=== PATIENT | female | born 1955 | race Caucasian/White ===

== ENCOUNTER 2016-09-20 19:01 | Emergency (ER) | payer OTHER ==
[~2016-09-20] VITALS: Ht 165.1 cm; Wt 90.7 kg
[~2016-09-20 19:01] MED LIST: ALDACTONE25 M1 PO; ALDACTONE25 MG PO; AMOXICILLIN500 MG PO; AMOXIL500 MG PO; ANAPROX DS550 MG PO; ASPIR-TRIN325 MG PO; ATIVAN0.5 MG PO; ATIVAN1 MG PO; ATIVAN2 M1 PO; ATORVASTATIN CA40 M1 PO; AUGMENTIN 875 M1 TAB PO; AUGMENTIN 875-875 MG PO; AUGMENTIN 875875 MG PO; BACTRIM DS 8001 TA1 PO; BENTYL10 MG PO; CARVEDILOL6.25 MG PO; CATAFLAM50 MG PO; CHERATUSSIN AC240 ML PO; CIPRO500 MG PO; CIPROFLOXACIN500 MG PO; CLARITIN10 MG PO; COLACE100 MG PO; COREG6.25 MG PO; DARVOCET N 1001 TAB PO; DAYPRO600 M1 PO; DEBROX15 ML OT; DIABETA,MICRO1.25 MG PO; DIFLUCAN150 MG PO; DIGITEK0.125 MG PO; DIGOXIN0.125 MG PO; FEROSUL325 M1 PO; FERROUS SULFAT325 MG PO; FEXOFENADINE60 MG PO; FLAGYL500 MG PO; FLEXERIL10 MG PO; FLEXERIL5 MG PO; FLONASE 0.05% 121 EA NAS; FLONASE ALLERG9.9 ML NAS; FLONASE ALLERG9.9 ML NS; FLONASE0.05 MG/AC NS; GLYBURIDE1.25 MG PO; HYDROCODONE BIT1 T11 PO; HYDROXYZINE10 MG PO; IBU-6600 MG PO; KLONOPIN1 MG PO; KLONOPIN2 M1 PO; LASIX20 MG PO; LEVAQUIN750 M1 PO; LISINOPRIL5 MG PO; LOMOTIL 0.025 M1 TA1 PO; MACROBID100 M1 PO; MEDROL DOSEPAK4 MG PO; METFORMIN HCL500 MG PO; METFORMIN1000 MG PO; METFORMIN500 MG PO; MOTRIN800 MG PO; Motrin,Rufen800 MG PO; NASONEX0.05 MG/AC NAS; NORCO 10-325 T1 EACH PO; NORCO 325 MG-51 TAB PO; OMEPRAZOLE20 MG PO; OXYBUTYNIN ER15 MG PO; OXYBUTYNIN5 MG PO; PHENERGAN25 M1 PO; PREDNISONE10 MG PO; PREDNISONE20 MG PO; PRILOSEC20 M2 PO; PROZAC20 MG PO; PYRIDIUM200 MG PO; Proloprim100 MG PO; REMERON SOLTAB30 MG PO; REMERON30 MG PO; ROBAXIN750 MG PO; ROBITUSSIN AC 110 ML PO; SALINE MIST 4545 ML NAS; TESSALON PERLE200 MG PO; TOBRADEX 0.1%-0.5 ML OPH; TOVIAZ8 MG PO; TRAMADOL HCL50 MG PO; VESICARE5 MG PO; VIBRAMYCIN100 MG PO; VICODIN 5/500 505 MG PO; VISTARIL50 MG PO; ZESTRIL5 MG PO; ZITHROMAX Z PA250 MG PO; ZOFRAN ODT4 MG SL; ZOFRAN4 MG PO; Zofran4 MG PO
[2016-09-20 19:18] VITALS: BP 155/100
[2016-09-20 19:52] LABS: BASO # 0.1 10*3/uL (0.0-0.1); BASO % 0.4 % (0.0-1.0); EOS # 0.1 10*3/uL (0.0-0.4); HEMATOCRIT 38.7 % (37.0-47.0); HEMOGLOBIN 11.4 g/dl (12.0-16.0); IG # 0.2 10*3/uL (0.0-0.1); LYMPH # 3.6 10*3/uL (1.3-4.4); LYMPH % 25.7 % (27.0-41.0); MEAN CELL VOLUME 77.4 fl (81.0-99.0); MEAN CORPUSCULAR HGB 22.8 pg (27.0-31.0); MEAN CORPUSCULAR HGB CONC 29.5 g/dl (33.0-37.0); MEAN PLATELET VOLUME 8.6 fl (9.6-12.3); MONO # 1.1 10*3/uL (0.1-1.0); MONO % 8.1 % (3.0-9.0); NEUT # 8.9 10*3/uL (2.3-7.9); NEUT % 63.4 % (47.0-73.0); PLATELET COUNT AUTOMATED 372 10*3/uL (130-400); RED CELL DISTRI WIDTH 16.8 % (0-14.5)
[2016-09-20 19:56] LABS: BILIRUBIN NEGATIVE (NEGATIVE); BLOOD TRACE-INTACT (NEGATIVE); CLARITY CLEAR (CLEAR); COLOR YELLOW (YELLOW); GLUCOSE NEGATIVE (NEGATIVE); KETONE TRACE (NEGATIVE); LEUKO ESTERASE NEGATIVE (NEGATIVE); NITRITE NEGATIVE (NEGATIVE); PH 6.5 (5.0-9.0); PROTEIN NEGATIVE (NEGATIVE); UROBILINOGEN 0.2 E.U./dl (0.2-1.0)
[2016-09-20 20:05] LABS: BACTERIA TRACE; EPITHELIAL CELLS 0-2; URINE REFLEX COMMENT YES (NO)
[2016-09-20 20:10] LABS: BUN 16 mg/dl (7-24); CARBON DIOXIDE 30 mmol/L (21-32); CHLORIDE 102 mmol/L (98-107); EST GLOM FILT AFRICAN AMERICAN > 60 ml/min; GLUCOSE 146 mg/dL (65-99); POTASSIUM 3.9 mmol/L (3.5-5.1); SODIUM 141 mmol/L (136-145)
[2016-09-20 20:11] LABS: C-REACTIVE PROTEIN < 0.29 MG/DL (0-0.3)
[2016-09-20 21:49] LABS: LA>2 REFLEX 2 HR DRAW NOW
[2016-09-20] MEDS ORDERED: NORCO 5-325 TA1 EACH PO (21:56)
[2016-09-20] MEDS ORDERED: OMNICEF300 MG PO (21:56)
[2016-09-20] MEDS ORDERED: ZOFRAN ODT4 MG SL (22:01)
[2016-09-20 22:18] LABS: LA>2 RFLX FOLLOW UP AT 2 HRS 3.2 mmol/L (0.4-2.0)
[2016-09-20] MEDS ORDERED: FLUCONAZOLE100 MG PO (22:23)
[2016-09-21] LABS: LA>2 REFLEX 4 HR DRAW NOW
== END 2016-09-20 22:08 | disposition home or self-care (01) ==
LOC: ED 19:01
PROVIDERS: Emergency Medicine Emergency Medical Services
DX: N20.0 Calculus of kidney (principal); R82.71 Bacteriuria; R11.10 Vomiting, unspecified; Z79.899 Other long term (current) drug therapy

== ENCOUNTER 2016-10-07 13:28 | Emergency (ER) | payer OTHER ==
[~2016-10-07] VITALS: Ht 165.1 cm; Wt 81.6 kg
[~2016-10-07 13:28] MED LIST changes: +FLUCONAZOLE100 MG PO; +NORCO 5-325 TA1 EACH PO; +OMNICEF300 MG PO
[2016-10-07 13:38] VITALS: BP 124/71
[2016-10-07] MEDS ORDERED: NAPROSYN500 MG PO (16:08)
== END 2016-10-07 16:18 | disposition home or self-care (01) ==
LOC: ED 13:28
DX: S22.31XA Fracture of one rib, right side, initial encounter for closed fracture (principal); K58.9 Irritable bowel syndrome, unspecified; Z96.643 Presence of artificial hip joint, bilateral; Z98.51 Tubal ligation status; Z90.710 Acquired absence of both cervix and uterus; Z98.890 Other specified postprocedural states; Z79.899 Other long term (current) drug therapy; W18.09XA Striking against other object with subsequent fall, initial encounter; Y93.89 Activity, other specified; Y92.89 Other specified places as the place of occurrence of the external cause; Y99.9 Unspecified external cause status

== ENCOUNTER 2016-11-23 11:07 | Emergency (ER) | payer OTHER ==
[~2016-11-23] VITALS: Ht 165.1 cm; Wt 81.6 kg
[~2016-11-23 11:07] MED LIST changes: +NAPROSYN500 MG PO
[2016-11-23 11:28] VITALS: BP 160/89
[2016-11-23 11:45] LABS: BILIRUBIN NEGATIVE (NEGATIVE); BLOOD TRACE-LYSED (NEGATIVE); CLARITY SL CLOUDY (CLEAR); COLOR YELLOW (YELLOW); GLUCOSE NEGATIVE (NEGATIVE); KETONE NEGATIVE (NEGATIVE); LEUKO ESTERASE TRACE (NEGATIVE); NITRITE NEGATIVE (NEGATIVE); PH 5.5 (5.0-9.0); PROTEIN TRACE (NEGATIVE); SPECIFIC GRAVITY 1.025 (1.005-1.030); UROBILINOGEN 0.2 E.U./dl (0.2-1.0)
[2016-11-23 12:01] LABS: BACTERIA 1+; MUCOUS 1+; URINE REFLEX COMMENT YES (NO)
[2016-11-23] MEDS ORDERED: MACROBID100 M1 PO (12:14)
[2016-11-23] MEDS ORDERED: DIFLUCAN150 MG PO (12:25)
== END 2016-11-23 13:56 | disposition home or self-care (01) ==
LOC: ED 11:07
PROVIDERS: Registered Nurse
DX: N30.01 Acute cystitis with hematuria (principal); R19.7 Diarrhea, unspecified; Z79.899 Other long term (current) drug therapy

== ENCOUNTER 2016-12-04 20:23 | Emergency (ER) | payer OTHER ==
[~2016-12-04] VITALS: Ht 165.1 cm; Wt 81.6 kg
[2016-12-04 20:34] VITALS: BP 141/94
[2016-12-04 21:09] LABS: BILIRUBIN NEGATIVE (NEGATIVE); BLOOD NEGATIVE (NEGATIVE); CLARITY SL CLOUDY (CLEAR); COLOR YELLOW (YELLOW); GLUCOSE NEGATIVE (NEGATIVE); KETONE TRACE (NEGATIVE); LEUKO ESTERASE NEGATIVE (NEGATIVE); NITRITE NEGATIVE (NEGATIVE); PROTEIN TRACE (NEGATIVE); SPECIFIC GRAVITY 1.025 (1.005-1.030); UROBILINOGEN 0.2 E.U./dl (0.2-1.0)
[2016-12-04 21:18] LABS: BACTERIA 1+; CALCIUM OXALATE CRYSTALS 1+; MUCOUS 1+; URINE REFLEX COMMENT NO (NO)
[2016-12-04] MEDS ORDERED: CIPRO500 MG PO (21:58)
[2016-12-04] MEDS ORDERED: PYRIDIUM200 M1 PO (22:00)
[2016-12-04] MEDS ORDERED: Zofran4 MG PO (23:07)
== END 2016-12-04 23:24 | disposition home or self-care (01) ==
LOC: ED 20:23
PROVIDERS: Emergency Medicine
DX: N39.0 Urinary tract infection, site not specified (principal); Z79.899 Other long term (current) drug therapy; Z87.442 Personal history of urinary calculi

== ENCOUNTER 2017-04-24 17:58 | Inpatient (IN) | payer OTHER ==
[~2017-04-24] VITALS: Ht 165.1 cm; Wt 107.1 kg
[~2017-04-24 17:58] MED LIST changes: +PYRIDIUM200 M1 PO
[2017-04-24 18:01] VITALS: BP 156/78
[2017-04-24 18:40] LABS: BASO # 0.1 10*3/uL (0.0-0.1); BASO % 0.4 % (0.0-1.0); EOS % 0.1 % (1.0-4.0); HEMATOCRIT 36.8 % (37.0-47.0); HEMOGLOBIN 10.9 g/dl (12.0-16.0); LYMPH # 1.6 10*3/uL (1.3-4.4); LYMPH % 11.9 % (27.0-41.0); MEAN CELL VOLUME 73.6 fl (81.0-99.0); MEAN CORPUSCULAR HGB 21.8 pg (27.0-31.0); MEAN CORPUSCULAR HGB CONC 29.6 g/dl (33.0-37.0); MONO # 0.8 10*3/uL (0.1-1.0); NEUT # 10.9 10*3/uL (2.3-7.9); NEUT % 80.8 % (47.0-73.0); PLATELET COUNT AUTOMATED 494 10*3/uL (130-400); RED CELL DISTRI WIDTH 16.1 % (0-14.5); WHITE BLOOD COUNT 13.5 10*3/uL (4.8-10.8)
[2017-04-24 18:51] LABS: ACT PARTIAL THROMBO TIME 22.7 SECONDS (20.8-31.5)
[2017-04-24 18:57] LABS: ALBUMIN 3.5 gm/dl (3.1-4.5); ALKALINE PHOSPHATASE 53 U/L (45-117); BUN 9 mg/dl (7-24); CHLORIDE 102 mmol/L (98-107); CREATININE 0.79 mg/dL (0.55-1.02); POTASSIUM 3.9 mmol/L (3.5-5.1); SGOT/AST 14 IU/L (3-35); SGPT/ALT 18 U/L (12-78); SODIUM 141 mmol/L (136-145); TOTAL PROTEIN 7.6 gm/dL (6.4-8.2)
[2017-04-24 18:58] LABS: TROPONIN I < 0.015 ng/ml (<0.045)
[2017-04-24 19:11] VITALS: BP 145/94
[2017-04-24 19:30] VITALS: BP 131/73
--- NOTE | 2017-04-24 19:30 | NUR ---
A 62, admitted to , under the services of SABAS Garcia DO with a diagnosis of GASTROENTERITIS, SEVERE SEPSIS. Chief complaint is NAUSEA/VOMITING. Patient arrived via bed from ER. Monitor applied. Initial assessment completed. Vital signs taken and recorded. SABAS GARCIA DO notified of admission to the unit. Orders received. See assessment for past medical history, medications and allergies. Patient and/or family oriented to unit. visitation policy reviewed. Clothing/patient valuable form completed. ADALBERTO BOOTH
[2017-04-24] MEDS ORDERED: AMBIEN10 M1 PO (19:51)
[2017-04-24 20:00] VITALS: BP 131/73
--- NOTE | 2017-04-24 20:00 | NUR ---
DR. MATHEW NOTIFIED OF PATIENT ADMISSION TO THE FLOOR AND THAT MED REQ WAS VERIFIED WITH PATIENT AND UP TO DATE.
--- NOTE | 2017-04-24 20:49 | NUR ---
PATIENT MEDICATED WITH PHENERGAN 25MG FOR NAUSEA AND VOMITING. WILL MONITOR FOR EFFECTIVENESS. CALL LIGHT IN REACH.
--- NOTE | 2017-04-24 20:56 | NUR ---
MEDICATED WITH DILAUDID FOR COMPLAINTS OF ABDOMINAL PAIN. WILL MONITOR FOR EFFECTIVENESS. CALL LIGHT IN REACH.
--- NOTE | 2017-04-24 21:15 | NUR ---
DR. DANIELS NOTIFIED OF CRITICAL LACTIC ACID OF 3.0.
--- NOTE | 2017-04-24 21:30 | NUR ---
DILAUDID AND PHENERGAN EFFECTIVE AT THIS TIME. PATIENT HAVING NO PAIN, NAUSEA OR VOMITING. STATED SHE IS FEELING GOOD NOW. WILL CONTINUE TO MONITOR. CALL LIGHT IN REACH.
--- NOTE | 2017-04-24 23:41 | NUR ---
DR. DANIELS NOTIFIED OF CRITICAL LACTIC ACID OF 3.2.
[2017-04-25] VITALS: BP 134/86
--- NOTE | 2017-04-25 00:27 | NUR ---
PATIENT MEDICATED WITH DILAUDID FOR COMPLAINTS OF ABDOMINAL PAIN. WILL MONITOR FOR EFFECTIVENESS. CALL LIGHT IN REACH.
--- NOTE | 2017-04-25 00:38 | NUR ---
MEDICATED WITH DILAUDID SLOW IV PUSH FOR C/O ABDOMINAL PAIN.
--- NOTE | 2017-04-25 00:54 | NUR ---
DILAUDID EFFECTIVE AT THIS TIME. PATIENT RESTING IN BED WITH EYES CLOSED. AROUSES TO VERBAL STIMULI. NO SIGNS OR SYMPTOMS OF DISTRESS NOTED. WILL CONTINUE TO MONITOR. CALL LIGHT IN REACH.
[2017-04-25 00:55] LABS: BILIRUBIN NEGATIVE (NEGATIVE); BLOOD 1+ (NEGATIVE); CLARITY CLEAR (CLEAR); COLOR YELLOW (YELLOW); GLUCOSE NEGATIVE (NEGATIVE); KETONE NEGATIVE (NEGATIVE); LEUKO ESTERASE NEGATIVE (NEGATIVE); NITRITE NEGATIVE (NEGATIVE); PH 5.5 (5.0-9.0); SPECIFIC GRAVITY <= 1.005 (1.005-1.030); UROBILINOGEN 0.2 E.U./dl (0.2-1.0)
[2017-04-25 01:01] LABS: BACTERIA TRACE
--- NOTE | 2017-04-25 04:28 | NUR ---
PATIENT MEDICATED WITH PHENERGAN 12.5MG FOR COMPLAINTS OF NAUSEA. WILL MONITOR FOR EFFECTIVENESS. CALL LIGHT IN REACH.
--- NOTE | 2017-04-25 04:35 | NUR ---
MEDICATED WITH DILAUDID FOR COMPLAINTS OF HEADACHE AND ABDOMINAL PAIN. WILL MONITOR FOR EFFECTIVENESS. CALL LIGHT IN REACH.
--- NOTE | 2017-04-25 05:08 | NUR ---
PHENERGAN AND DILAUDID EFFECTIVE. CALL LIGHT IN REACH.
[2017-04-25 06:29] LABS: BASO % 0.3 % (0.0-1.0); EOS # 0.1 10*3/uL (0.0-0.4); EOS % 0.7 % (1.0-4.0); HEMOGLOBIN 9.4 g/dl (12.0-16.0); LYMPH # 3.7 10*3/uL (1.3-4.4); MEAN CELL VOLUME 76.2 fl (81.0-99.0); MEAN CORPUSCULAR HGB 21.7 pg (27.0-31.0); MEAN CORPUSCULAR HGB CONC 28.5 g/dl (33.0-37.0); MEAN PLATELET VOLUME 9.1 fl (9.6-12.3); MONO # 1.2 10*3/uL (0.1-1.0); MONO % 9.2 % (3.0-9.0); NEUT # 7.6 10*3/uL (2.3-7.9); NEUT % 60.1 % (47.0-73.0); PLATELET COUNT AUTOMATED 448 10*3/uL (130-400); RED BLOOD COUNT 4.33 10*6/uL (4.10-5.10); RED CELL DISTRI WIDTH 16.3 % (0-14.5); WHITE BLOOD COUNT 12.7 10*3/uL (4.8-10.8)
[2017-04-25 07:00] LABS: ACT PARTIAL THROMBO TIME 24.5 SECONDS (20.8-31.5)
[2017-04-25 07:14] LABS: ALBUMIN 3.1 gm/dl (3.1-4.5); BUN 8 mg/dl (7-24); CHLORIDE 105 mmol/L (98-107); POTASSIUM 3.7 mmol/L (3.5-5.1); SGOT/AST 17 IU/L (3-35); SGPT/ALT 15 U/L (12-78); SODIUM 142 mmol/L (136-145)
[2017-04-25 07:22] LABS: ALKALINE PHOSPHATASE 42 U/L (45-117); CHOLESTEROL 244 mg/dL (<200); CREATININE 0.76 mg/dL (0.55-1.02); FREE T4 1.12 ng/dl (0.76-1.46); HDL CHOLESTEROL 79 mg/dl (40-60); LDL CHOLESTEROL 121 mg/dL (9-159); PHOSPHOROUS 3.1 mg/dL (2.5-4.9); TOTAL PROTEIN 6.5 gm/dL (6.4-8.2); TRIGLYCERIDES 222 mg/dl (<150); VLDL CHOLESTEROL 44 mg/dL (6-40)
[2017-04-25 07:37] LABS: VITAMIN D, 25-HYDROXY 22.8 ng/mL (30-100)
[2017-04-25 08:00] VITALS: BP 120/70
--- NOTE | 2017-04-25 09:32 | NUR ---
TRIED TO CONTACT MANISHA FERNANDEZ TO RECONCILE HOME MEDICATIONS BUT THE PHARMACY WAS NOT OPEN.
--- NOTE | 2017-04-25 10:10 | NUR ---
PHARMACIST TO FAX PATIENTS MED LIST BECAUSE IT WAS VERY LONG. WILL VERIFY AND FOLLOW UP NEEDED FOR COMPLETION.
[2017-04-25 12:00] VITALS: BP 143/92
[2017-04-25] MEDS ORDERED: OMEPRAZOLE D/R20 MG PO (12:25)
[2017-04-25] MEDS ORDERED: BUTALB-ASPIRIN1 EACH PO (12:36)
[2017-04-25] MEDS ORDERED: GLIMEPIRIDE4 M1 PO (12:39)
[2017-04-25] MEDS ORDERED: TERAZOSIN HCL2 M1 PO (12:40)
--- NOTE | 2017-04-25 13:15 | NUR ---
DR. WALSH NOTIFIED ABOUT COMPLETED MED REC.
--- NOTE | 2017-04-25 15:37 | NUR ---
SPOKE TO SARKIS THE PHARMACIST MEDICATIONS ARE CORRECT AND UP TO DATE
--- NOTE | 2017-04-25 15:39 | NUR ---
DR. WALSH NOTIFIED OF PATIENTS INCREASE IN PVC'S AND HEART RATE RANGING FROM 124 UP TO 133. BP 134-64 T 98.8 SPO2 95 % ROOM AIR. PATIENT IS SITTING UP IN CHAIR. PATIENT IS CHRONICALLY ANXIOUS, ALERT AND ORIENTED. NO C/O CHEST PAIN.
[2017-04-25 16:00] VITALS: BP 136/90
--- NOTE | 2017-04-25 17:15 | NUR ---
FIORACET NOT EFFECTIVE. PATIENT STILL C/O HEADACHE. STATES THE ONLY THING THAT HELPS IS DILAUDID.
--- NOTE | 2017-04-25 19:29 | NUR ---
PATIENT'S SISTER TO NURSES STATION STATING THAT PATIENT HAS HAD A HEADACHE ALL DAY AND IT HAS NOT BEEN RESOLVED. WILL ASSESS PATIENT AND LET KNOW
--- NOTE | 2017-04-25 19:47 | NUR ---
DR BECERRIL AWARE OF PATIENT C/O HEADACHE AND THAT DILAUDID IS THE ONLY THING THAT WORKS FOR HER. ORDER FOR 0.5 DILAUDID Q4H PRN FOR PAIN.
[2017-04-25 20:00] VITALS: BP 135/89
--- NOTE | 2017-04-25 20:13 | NUR ---
PATIENT MEDICATED WITH PRN DILAUDID FOR C/O HEADACHE RATED 10/10 ON A 0/10 PAIN SCALE.
--- NOTE | 2017-04-25 21:13 | NUR ---
PATIENT STATES MEDICATION IN MILDLY EFFECTIVE
--- NOTE | 2017-04-25 22:31 | NUR ---
PATIENT MEDICATED WITH PRN PHENERGAN FOR C/O NAUSEA
--- NOTE | 2017-04-25 23:54 | NUR ---
PATIENT RESTING IN BED WITH EYES CLOSED. NO S/S OF DISTRESS. MEDICATION SEEMS EFFECTIVE
[2017-04-26] VITALS: BP 104/83
--- NOTE | 2017-04-26 02:32 | NUR ---
DR BECERRIL AWARE OF PATIENT'S FEET BEGINNING TO SWELL, HISTORY OF CHF, AND FLUIDS RUNNING. STATES TO STOP FLUIDS
--- NOTE | 2017-04-26 03:06 | NUR ---
PATIENT MEDICATED WITH DILAUDID FOR C/O ANXIOUSNESS
--- NOTE | 2017-04-26 04:13 | NUR ---
MEDICATION NOT EFFECTIVE PER PATIENT
--- NOTE | 2017-04-26 04:23 | NUR ---
24 HR chart check completed.
[2017-04-26 06:47] LABS: BASO % 0.3 % (0.0-1.0); EOS # 0.2 10*3/uL (0.0-0.4); EOS % 1.5 % (1.0-4.0); HEMATOCRIT 30.6 % (37.0-47.0); HEMOGLOBIN 8.9 g/dl (12.0-16.0); LYMPH # 2.6 10*3/uL (1.3-4.4); LYMPH % 26.1 % (27.0-41.0); MEAN CELL VOLUME 76.5 fl (81.0-99.0); MEAN CORPUSCULAR HGB 22.3 pg (27.0-31.0); MEAN CORPUSCULAR HGB CONC 29.1 g/dl (33.0-37.0); MEAN PLATELET VOLUME 9.2 fl (9.6-12.3); MONO % 9.5 % (3.0-9.0); NEUT # 6.2 10*3/uL (2.3-7.9); NEUT % 61.6 % (47.0-73.0); PLATELET COUNT AUTOMATED 383 10*3/uL (130-400); RED CELL DISTRI WIDTH 16.2 % (0-14.5); WHITE BLOOD COUNT 10.1 10*3/uL (4.8-10.8)
[2017-04-26 07:24] LABS: ALBUMIN 2.9 gm/dl (3.1-4.5); BUN 5 mg/dl (7-24); CHLORIDE 102 mmol/L (98-107); CREATININE 0.71 mg/dL (0.55-1.02); POTASSIUM 3.7 mmol/L (3.5-5.1); SGOT/AST 42 IU/L (3-35); SGPT/ALT 27 U/L (12-78); SODIUM 140 mmol/L (136-145); TOTAL PROTEIN 6.2 gm/dL (6.4-8.2)
[2017-04-26 07:33] LABS: ALKALINE PHOSPHATASE 44 U/L (45-117)
--- NOTE | 2017-04-26 07:45 | NUR ---
MEDICATED FOR ANXIETY WITH VISTARIL.
[2017-04-26 08:00] VITALS: BP 127/77
--- NOTE | 2017-04-26 08:40 | NUR ---
STATES TAHT EARLIER MED HELPED HER ANXIETY A LITTLE.
--- NOTE | 2017-04-26 09:00 | NUR ---
case management visits with patient, patient was not feeling well at this time and asked case mangaement to come back later. will see at a later time
--- NOTE | 2017-04-26 10:29 | NUR ---
MEDICATED FOR C/O HEADACHE.
[2017-04-26] MEDS ORDERED: PHENERGAN25 M3 PO (12:02)
[2017-04-26] MEDS ORDERED: GLIMEPIRIDE4 M1 PO (12:07)
--- NOTE | 2017-04-26 13:02 | NUR ---
DISCHARGED HOME AFTER INSTRUCTIONS GIVEN TO PATIENT.
== END 2017-04-26 13:02 | disposition home or self-care (01) | DRG 872 ==
LOC: ED 17:58 → 4E 19:01 → EDHOLD 19:01 → 4E 19:02
PROVIDERS: Hospitalist; Internal Medicine; Student in an Organized Health Care Education/Training Program; ADMIT Internal Medicine
DX: A41.9 Sepsis, unspecified organism (principal); E87.2 Acidosis; E44.0 Moderate protein-calorie malnutrition; E11.65 Type 2 diabetes mellitus with hyperglycemia; E66.01 Morbid (severe) obesity due to excess calories; D72.810 Lymphocytopenia; R65.20 Severe sepsis without septic shock; K52.9 Noninfective gastroenteritis and colitis, unspecified; D47.3 Essential (hemorrhagic) thrombocythemia; D50.9 Iron deficiency anemia, unspecified; I10 Essential (primary) hypertension; E78.2 Mixed hyperlipidemia; F41.8 Other specified anxiety disorders; F32.9 Major depressive disorder, single episode, unspecified; E55.9 Vitamin D deficiency, unspecified; R51 Headache; Z79.899 Other long term (current) drug therapy; Z82.49 Family history of ischemic heart disease and other diseases of the circulatory system; Z80.41 Family history of malignant neoplasm of ovary; Z80.42 Family history of malignant neoplasm of prostate; Z90.710 Acquired absence of both cervix and uterus; Z68.37 Body mass index [BMI] 37.0-37.9, adult

== ENCOUNTER 2017-06-26 17:15 | Emergency (ER) | payer OTHER ==
[~2017-06-26] VITALS: Wt 81.6 kg
[~2017-06-26 17:15] MED LIST changes: +AMBIEN10 M1 PO; +BUTALB-ASPIRIN1 EACH PO; +GLIMEPIRIDE4 M1 PO; +OMEPRAZOLE D/R20 MG PO; +PHENERGAN25 M3 PO; +TERAZOSIN HCL2 M1 PO
[2017-06-26 17:17] VITALS: BP 117/74
[2017-06-26 17:51] LABS: BILIRUBIN NEGATIVE (NEGATIVE); BLOOD NEGATIVE (NEGATIVE); CLARITY CLEAR (CLEAR); COLOR YELLOW (YELLOW); GLUCOSE NEGATIVE (NEGATIVE); KETONE NEGATIVE (NEGATIVE); LEUKO ESTERASE NEGATIVE (NEGATIVE); NITRITE NEGATIVE (NEGATIVE); PH 5.5 (5.0-9.0); UROBILINOGEN 0.2 E.U./dl (0.2-1.0)
[2017-06-26 17:53] LABS: BASO % 0.2 % (0.0-1.0); EOS # 0.1 10*3/uL (0.0-0.4); EOS % 1.1 % (1.0-4.0); HEMATOCRIT 37.6 % (37.0-47.0); HEMOGLOBIN 10.8 g/dl (12.0-16.0); LYMPH # 2.4 10*3/uL (1.3-4.4); LYMPH % 18.9 % (27.0-41.0); MEAN CORPUSCULAR HGB 21.3 pg (27.0-31.0); MEAN CORPUSCULAR HGB CONC 28.7 g/dl (33.0-37.0); MEAN PLATELET VOLUME 8.9 fl (9.6-12.3); MONO % 7.8 % (3.0-9.0); NEUT # 9.2 10*3/uL (2.3-7.9); NEUT % 71.2 % (47.0-73.0); PLATELET COUNT AUTOMATED 390 10*3/uL (130-400); RED BLOOD COUNT 5.08 10*6/uL (4.10-5.10); RED CELL DISTRI WIDTH 17.5 % (0-14.5); WHITE BLOOD COUNT 12.9 10*3/uL (4.8-10.8)
[2017-06-26 17:57] LABS: BACTERIA TRACE
[2017-06-26 18:09] LABS: ALBUMIN 3.5 gm/dl (3.1-4.5); ALKALINE PHOSPHATASE 52 U/L (45-117); BUN 19 mg/dl (7-24); CHLORIDE 99 mmol/L (98-107); CREATININE 0.82 mg/dL (0.55-1.02); POTASSIUM 3.8 mmol/L (3.5-5.1); SGOT/AST 14 IU/L (3-35); SGPT/ALT 15 U/L (12-78); SODIUM 140 mmol/L (136-145); TOTAL PROTEIN 7.2 gm/dL (6.4-8.2)
[2017-06-26] MEDS ORDERED: PYRIDIUM200 M1 PO (18:26)
[2017-06-26] MEDS ORDERED: METFORMIN XR500 MG PO (18:26)
[2017-06-26] MEDS ORDERED: DIFLUCAN150 MG PO (18:26)
== END 2017-06-26 18:30 | disposition home or self-care (01) ==
LOC: ED 17:15
PROVIDERS: Emergency Medicine
DX: R30.0 Dysuria (principal); R35.0 Frequency of micturition; E11.9 Type 2 diabetes mellitus without complications; I10 Essential (primary) hypertension; E78.5 Hyperlipidemia, unspecified; Z79.899 Other long term (current) drug therapy

== ENCOUNTER → 2017-07-27 | Outpatient (CLI) | payer OTHER ==
[~2017-07-27] MED LIST changes: +METFORMIN XR500 MG PO
[2017-07-27 12:22] LABS: BUN 10 mg/dl (7-24); CHLORIDE 105 mmol/L (98-107); CHOLESTEROL 180 mg/dL (<200); CPK 147 U/L (26-192); CREATININE 0.76 mg/dL (0.55-1.02); HDL CHOLESTEROL 67 mg/dl (40-60); LDL CHOLESTEROL 63 mg/dL (9-159); POTASSIUM 4.1 mmol/L (3.5-5.1); SODIUM 141 mmol/L (136-145); TRIGLYCERIDES 250 mg/dl (<150); VLDL CHOLESTEROL 50 mg/dL (6-40)
[2017-07-27 12:35] LABS: DIGOXIN 0.42 ng/ml (0.8-2.0)
[2017-07-28 12:05] LABS: CREATININE,URINE 106.9 mg/dL (Not Estab.); MICRO ALBUMIN/CRE RATIO 18.1 (0.0-30.0)
== END | disposition home or self-care (01) ==
LOC: LAB 11:22
PROVIDERS: Family Medicine
DX: E11.9 Type 2 diabetes mellitus without complications (principal); I50.9 Heart failure, unspecified; E78.5 Hyperlipidemia, unspecified

== ENCOUNTER → 2017-08-11 | Outpatient (CLI) | payer OTHER | END | disposition home or self-care (01) | LOC: CARD 02:25 | DX: I08.1 Rheumatic disorders of both mitral and tricuspid valves (principal) ==

== ENCOUNTER 2017-08-22 13:45 | Emergency (ER) | payer OTHER ==
[~2017-08-22] VITALS: Ht 167.6 cm; Wt 79.4 kg
[2017-08-22 13:45] VITALS: BP 169/94
[2017-08-22 15:01] LABS: BASO % 0.3 % (0.0-1.0); EOS % 0.1 % (1.0-4.0); HEMATOCRIT 38.3 % (37.0-47.0); HEMOGLOBIN 11.3 g/dl (12.0-16.0); LYMPH # 1.8 10*3/uL (1.3-4.4); LYMPH % 12.8 % (27.0-41.0); MEAN CELL VOLUME 74.5 fl (81.0-99.0); MEAN CORPUSCULAR HGB CONC 29.5 g/dl (33.0-37.0); MEAN PLATELET VOLUME 8.7 fl (9.6-12.3); MONO % 6.7 % (3.0-9.0); NEUT # 11.3 10*3/uL (2.3-7.9); NEUT % 79.3 % (47.0-73.0); PLATELET COUNT AUTOMATED 435 10*3/uL (130-400); RED BLOOD COUNT 5.14 10*6/uL (4.10-5.10); RED CELL DISTRI WIDTH 18.1 % (0-14.5); WHITE BLOOD COUNT 14.2 10*3/uL (4.8-10.8)
[2017-08-22 15:04] LABS: BILIRUBIN NEGATIVE (NEGATIVE); BLOOD NEGATIVE (NEGATIVE); CLARITY SL CLOUDY (CLEAR); COLOR YELLOW (YELLOW); GLUCOSE 3+ (NEGATIVE); KETONE NEGATIVE (NEGATIVE); LEUKO ESTERASE NEGATIVE (NEGATIVE); NITRITE NEGATIVE (NEGATIVE); PH 5.5 (5.0-9.0); SPECIFIC GRAVITY 1.015 (1.005-1.030); UROBILINOGEN 0.2 E.U./dl (0.2-1.0)
[2017-08-22 15:10] LABS: ACT PARTIAL THROMBO TIME 22.3 SECONDS (20.8-31.5); INTERNATIONAL NORM RATIO 0.9 (2.0-3.5)
[2017-08-22 15:16] LABS: BACTERIA TRACE; RBC 0-2 rbc/hpf (0-2); WBC 0-2 wbc/hpf (0-5)
[2017-08-22 15:17] LABS: ALBUMIN 3.5 gm/dl (3.1-4.5); ALKALINE PHOSPHATASE 60 U/L (45-117); BUN 16 mg/dl (7-24); CHLORIDE 97 mmol/L (98-107); CREATININE 0.85 mg/dL (0.55-1.02); LIPASE 219 U/L (73-393); POTASSIUM 3.9 mmol/L (3.5-5.1); SGOT/AST 11 IU/L (3-35); SGPT/ALT 15 U/L (12-78); SODIUM 138 mmol/L (136-145); TOTAL PROTEIN 7.4 gm/dL (6.4-8.2)
[2017-08-22] MEDS ORDERED: ZOFRAN ODT4 MG SL (16:55)
== END 2017-08-22 17:01 | disposition home or self-care (01) ==
LOC: ED 13:45
PROVIDERS: Emergency Medicine
DX: R11.2 Nausea with vomiting, unspecified (principal); R10.84 Generalized abdominal pain; E11.9 Type 2 diabetes mellitus without complications; E78.5 Hyperlipidemia, unspecified; E66.9 Obesity, unspecified; E78.00 Pure hypercholesterolemia, unspecified; I11.0 Hypertensive heart disease with heart failure; I50.9 Heart failure, unspecified; K58.9 Irritable bowel syndrome, unspecified; Z96.643 Presence of artificial hip joint, bilateral; Z98.51 Tubal ligation status; Z90.710 Acquired absence of both cervix and uterus; Z98.890 Other specified postprocedural states; Z79.899 Other long term (current) drug therapy

== ENCOUNTER 2017-12-04 16:26 | Emergency (ER) | payer OTHER ==
[~2017-12-04] VITALS: Ht 165.1 cm; Wt 81.6 kg
[2017-12-04 16:30] VITALS: BP 147/90
[2017-12-04] MEDS ORDERED: AMOXICILLIN500 M2 PO (16:53)
[2017-12-04] MEDS ORDERED: NORCO 10-325 T1 EACH PO (16:53)
== END 2017-12-04 17:15 | disposition home or self-care (01) ==
LOC: ED 16:26
DX: S02.5XXA Fracture of tooth (traumatic), initial encounter for closed fracture (principal); E11.9 Type 2 diabetes mellitus without complications; I10 Essential (primary) hypertension; E78.5 Hyperlipidemia, unspecified; E66.9 Obesity, unspecified; Z68.29 Body mass index [BMI] 29.0-29.9, adult; Z90.710 Acquired absence of both cervix and uterus; Z79.84 Long term (current) use of oral hypoglycemic drugs; Z79.899 Other long term (current) drug therapy; Z98.890 Other specified postprocedural states; Z98.51 Tubal ligation status; X58.XXXA Exposure to other specified factors, initial encounter; Y93.89 Activity, other specified; Y92.89 Other specified places as the place of occurrence of the external cause; Y99.8 Other external cause status

== ENCOUNTER 2017-12-26 21:49 | Emergency (ER) | payer OTHER ==
[~2017-12-26] VITALS: Ht 165.1 cm; Wt 81.6 kg
[~2017-12-26 21:49] MED LIST changes: +AMOXICILLIN500 M2 PO
[2017-12-26 21:52] VITALS: BP 140/88
[2017-12-26 22:21] LABS: BILIRUBIN NEGATIVE (NEGATIVE); BLOOD TRACE-INTACT (NEGATIVE); CLARITY CLEAR (CLEAR); COLOR YELLOW (YELLOW); GLUCOSE NEGATIVE (NEGATIVE); KETONE NEGATIVE (NEGATIVE); LEUKO ESTERASE 1+ (NEGATIVE); NITRITE NEGATIVE (NEGATIVE); UROBILINOGEN 0.2 E.U./dl (0.2-1.0)
[2017-12-26 22:26] LABS: HYALINE CAST 0-2
[2017-12-26 22:27] LABS: EPITHELIAL CELLS 15-20
[2017-12-26] MEDS ORDERED: MACROBID100 M1 PO (22:41)
== END 2017-12-26 22:46 | disposition home or self-care (01) ==
LOC: ED 21:49
PROVIDERS: Emergency Medicine
DX: N39.0 Urinary tract infection, site not specified (principal); E11.9 Type 2 diabetes mellitus without complications; E78.5 Hyperlipidemia, unspecified; I10 Essential (primary) hypertension; E66.9 Obesity, unspecified; Z79.899 Other long term (current) drug therapy

== ENCOUNTER 2018-01-02 18:50 | Emergency (ER) | payer OTHER ==
[~2018-01-02] VITALS: Ht 165.1 cm; Wt 77.1 kg
--- NOTE | ~2018-01-02 | EKG ---
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
[2018-01-02 19:28] LABS: BILIRUBIN NEGATIVE (NEGATIVE); BLOOD TRACE-INTACT (NEGATIVE); CLARITY CLEAR (CLEAR); COLOR YELLOW (YELLOW); GLUCOSE NEGATIVE (NEGATIVE); KETONE 1+ (NEGATIVE); LEUKO ESTERASE TRACE (NEGATIVE); NITRITE NEGATIVE (NEGATIVE); SPECIFIC GRAVITY 1.015 (1.005-1.030); UROBILINOGEN 0.2 E.U./dl (0.2-1.0)
[2018-01-02 19:37] LABS: BACTERIA TRACE; EPITHELIAL CELLS 0-2; RBC 0-2 rbc/hpf (0-2)
[2018-01-02 19:56] LABS: BASO % 0.3 % (0.0-1.0); EOS # 0.1 10*3/uL (0.0-0.4); EOS % 0.9 % (1.0-4.0); HEMATOCRIT 42.2 % (37.0-47.0); HEMOGLOBIN 12.6 g/dl (12.0-16.0); LYMPH # 3.2 10*3/uL (1.3-4.4); LYMPH % 22.5 % (27.0-41.0); MEAN CELL VOLUME 79.9 fl (81.0-99.0); MEAN CORPUSCULAR HGB 23.9 pg (27.0-31.0); MEAN CORPUSCULAR HGB CONC 29.9 g/dl (33.0-37.0); MEAN PLATELET VOLUME 8.9 fl (9.6-12.3); MONO # 1.2 10*3/uL (0.1-1.0); MONO % 8.7 % (3.0-9.0); NEUT # 9.4 10*3/uL (2.3-7.9); NEUT % 66.9 % (47.0-73.0); PLATELET COUNT AUTOMATED 392 10*3/uL (130-400); RED BLOOD COUNT 5.28 10*6/uL (4.10-5.10); WHITE BLOOD COUNT 14.1 10*3/uL (4.8-10.8)
[2018-01-02 20:06] LABS: ACT PARTIAL THROMBO TIME 23.9 SECONDS (20.8-31.5)
[2018-01-02 20:13] LABS: ALBUMIN 3.7 gm/dl (3.1-4.5); ALKALINE PHOSPHATASE 62 U/L (45-117); BUN 18 mg/dl (7-24); CHLORIDE 95 mmol/L (98-107); CREATININE 1.32 mg/dL (0.55-1.02); POTASSIUM 3.4 mmol/L (3.5-5.1); SGOT/AST 14 IU/L (3-35); SGPT/ALT 14 U/L (12-78); SODIUM 135 mmol/L (136-145); TOTAL PROTEIN 7.8 gm/dL (6.4-8.2)
[2018-01-02 20:14] LABS: TROPONIN I < 0.015 ng/ml (<0.045)
[2018-01-02 22:36] VITALS: BP 138/90
== END 2018-01-02 23:27 | disposition home or self-care (01) ==
LOC: ED 18:50
PROVIDERS: Student in an Organized Health Care Education/Training Program
DX: E87.2 Acidosis (principal); Z76.5 Malingerer [conscious simulation]; E11.9 Type 2 diabetes mellitus without complications; I10 Essential (primary) hypertension; E78.5 Hyperlipidemia, unspecified; E66.9 Obesity, unspecified; Z79.899 Other long term (current) drug therapy

== ENCOUNTER → 2018-03-23 | Outpatient (CLI) | payer OTHER ==
[2018-03-23 13:05] LABS: BASO % 0.3 % (0.0-1.0); EOS # 0.2 10*3/uL (0.0-0.4); EOS % 1.5 % (1.0-4.0); HEMATOCRIT 37.3 % (37.0-47.0); HEMOGLOBIN 11.2 g/dl (12.0-16.0); LYMPH # 2.2 10*3/uL (1.3-4.4); LYMPH % 22.7 % (27.0-41.0); MEAN CELL VOLUME 78.5 fl (81.0-99.0); MEAN CORPUSCULAR HGB 23.6 pg (27.0-31.0); MEAN PLATELET VOLUME 9.1 fl (9.6-12.3); MONO # 0.8 10*3/uL (0.1-1.0); MONO % 7.6 % (3.0-9.0); NEUT # 6.6 10*3/uL (2.3-7.9); NEUT % 67.4 % (47.0-73.0); PLATELET COUNT AUTOMATED 346 10*3/uL (130-400); RED BLOOD COUNT 4.75 10*6/uL (4.10-5.10); RED CELL DISTRI WIDTH 15.1 % (0-14.5); WHITE BLOOD COUNT 9.9 10*3/uL (4.8-10.8)
[2018-03-23 13:23] LABS: BUN 21 mg/dl (7-24); CHLORIDE 97 mmol/L (98-107); CHOLESTEROL 189 mg/dL (<200); CREATININE 0.86 mg/dL (0.55-1.02); HDL CHOLESTEROL 71 mg/dl (40-60); LDL CHOLESTEROL 76 mg/dL (9-159); SODIUM 137 mmol/L (136-145); TRIGLYCERIDES 210 mg/dl (<150); VLDL CHOLESTEROL 42 mg/dL (6-40)
== END | disposition home or self-care (01) ==
LOC: LAB 12:10
PROVIDERS: Family Medicine
DX: E11.9 Type 2 diabetes mellitus without complications (principal); E78.5 Hyperlipidemia, unspecified; D50.9 Iron deficiency anemia, unspecified

== ENCOUNTER 2018-05-29 12:38 | Emergency (ER) | payer OTHER ==
[~2018-05-29] VITALS: Ht 165.1 cm; Wt 83.9 kg
--- NOTE | ~2018-05-29 | EKG ---
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1955 Requested By: TARA LARA Order Number: [id number] Reading MD: Mickey Earl MD Measurements Intervals [place] Rate: 108 P: 72 KS: 179 QRS: -34 QRSD: 99 T: 92 QT: 352 QTc: 472 Interpretive Statements Sinus tachycardia Paired ventricular premature complexes Inferior infarct, old Anteroseptal infarct, old Compared to ECG 01/02/2018 19:23:43 Sinus rhythm no longer present Incomplete right bundle-branch block no longer present Myocardial infarct finding still present Electronically Signed On 05-30-2018 7:46:51 PST by Mickey Earl MD CM:EKGRPT:ELECTROCARDIOGRAM REPORT [id number] TARA LARA EPIPHANY DRAFT REPORT TARA LARA
[2018-05-29 13:27] LABS: BASO % 0.4 % (0.0-1.0); EOS # 0.1 10*3/uL (0.0-0.4); EOS % 0.6 % (1.0-4.0); HEMATOCRIT 36.2 % (37.0-47.0); HEMOGLOBIN 10.2 g/dl (12.0-16.0); LYMPH # 1.4 10*3/uL (1.3-4.4); LYMPH % 16.3 % (27.0-41.0); MEAN CELL VOLUME 72.8 fl (81.0-99.0); MEAN CORPUSCULAR HGB 20.5 pg (27.0-31.0); MEAN CORPUSCULAR HGB CONC 28.2 g/dl (33.0-37.0); MEAN PLATELET VOLUME 9.1 fl (9.6-12.3); MONO # 0.8 10*3/uL (0.1-1.0); MONO % 9.6 % (3.0-9.0); NEUT # 6.2 10*3/uL (2.3-7.9); NEUT % 72.5 % (47.0-73.0); PLATELET COUNT AUTOMATED 297 10*3/uL (130-400); RED BLOOD COUNT 4.97 10*6/uL (4.10-5.10); RED CELL DISTRI WIDTH 16.6 % (0-14.5); WHITE BLOOD COUNT 8.5 10*3/uL (4.8-10.8)
[2018-05-29 13:45] LABS: ALBUMIN 3.2 gm/dl (3.1-4.5); CREATININE 1.19 mg/dL (0.55-1.02); TOTAL PROTEIN 6.4 gm/dL (6.4-8.2)
[2018-05-29 13:46] LABS: TROPONIN I 0.038 ng/ml (<0.045)
[2018-05-29 13:48] LABS: BILIRUBIN NEGATIVE (NEGATIVE); BLOOD NEGATIVE (NEGATIVE); CLARITY CLEAR (CLEAR); COLOR YELLOW (YELLOW); GLUCOSE 1+ (NEGATIVE); KETONE NEGATIVE (NEGATIVE); LEUKO ESTERASE NEGATIVE (NEGATIVE); NITRITE NEGATIVE (NEGATIVE); PH 6.5 (5.0-9.0); SPECIFIC GRAVITY <= 1.005 (1.005-1.030); UROBILINOGEN 0.2 E.U./dl (0.2-1.0)
[2018-05-29 14:13] LABS: BACTERIA 2+; MUCOUS TRACE
[2018-05-29] MEDS ORDERED: ZOFRAN4 MG PO ×2 (14:55→16:02)
== END 2018-05-29 14:41 | disposition home or self-care (01) ==
LOC: ED 12:38
PROVIDERS: Nurse Practitioner Family
DX: R11.0 Nausea (principal); E87.6 Hypokalemia; R53.1 Weakness; M79.89 Other specified soft tissue disorders; Z79.899 Other long term (current) drug therapy

== ENCOUNTER 2018-07-08 10:53 | Inpatient (IN) | payer OTHER ==
[~2018-07-08] VITALS: Ht 165.1 cm; Wt 103.5 kg
--- NOTE | ~2018-07-08 | PR ---
[place], [place] PROGRESS NOTE [id number] #: [id number] ROOM: 506 DOCTOR: NICKY DENISE MD BIRTHDATE: [birth year] DOS: 07/12/2018 SUBJECTIVE: A 24-hour events noted. The patient's urine output is still positive. I strongly recommend to keep it around 1500 mL fluid restriction, severe nonischemic cardiomyopathy. She is sleeping now. OBJECTIVE: VITAL SIGNS: Blood pressure is 116/80, intermittent paced rhythm, heart rate is 86. NECK: Supple, significantly elevated JVD. LUNGS: Diminished breath sounds. HEART: Sounds are regular. EXTREMITIES: About 3+ edema. LABORATORY DATA: Hemoglobin 9.1 and hematocrit 35.6, platelet count is okay. Electrolytes are normal. Creatinine is 1.5. IMPRESSION: The patient with: 1. Severe nonischemic cardiomyopathy. 2. Severe left ventricular dysfunction. 3. Chronic systolic congestive heart failure. 4. Renal insufficiency. PLAN: Continue the present medications. Bumex has been increased yesterday, but prescribed to be careful with urine output, might need outpatient dobutamine therapy. Condition is guarded. The last resort is to refer her for a cardiac transplantation. Unfortunately, we had tried Entresto, was not possible because of hypotension. NICKY DENISE MD CM:PNTRANS [id number] NICKY DENISE MD 07/12/18 1259 interface
--- NOTE | ~2018-07-08 | PR ---
[place], [place] PROGRESS NOTE [id number] UNIT #: [id number] ROOM: 506 DOCTOR: BIJU SANTIZO MD BIRTHDATE: [birth year] DOS: 07/15/2018 SUBJECTIVE: The patient remains short of breath. She has oxygen on. She has no chest pain or palpitations. Swelling in the legs remains fairly significant. She has been on IV bumetanide 3 mg b.i.d. She diuresed well over the last 24 hours, but previously she had not done so. PHYSICAL EXAMINATION: GENERAL: This is a patient who is sitting by the side of bed. She is short of breath and has oxygen on. NECK: JVP is difficult to assess. LUNGS: Breath sounds are diminished with some crackles. EXTREMITIES: She still has 2-3+ edema below the knees. Her weight in fact has gone up from 113 kilos on admission to 116 kilos. Renal function appears to be improving, i.e., BUN and creatinine are creeping down gradually. IMPRESSION: This patient has acute on chronic systolic heart failure with elevated right-sided pressure as well. RECOMMENDATIONS: Metolazone 5 mg daily should be added, to be given before morning dose of Bumex. Hopefully, that will induce enough diuresis. I still feel that she has a fair amount of volume overload/heart failure that needs to be taken care of with increasing doses of loop diuretic. I saw this patient on behalf of Dr. Ge. BIJU SANTIZO MD CM:PNTRANS [id number] BIJU SANTIZO MD 07/16/18 0926 interface
--- NOTE | ~2018-07-08 | EKG ---
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1955 Requested By: MARIANGEL GALLEGOS Order Number: [id number] Reading MD: El Ge MD Measurements Intervals [place] Rate: 86 P: 69 WV: 158 QRS: -35 QRSD: 93 T: QT: 423 QTc: 506 Interpretive Statements Sinus rhythm Ventricular premature complex Low voltage, extremity and precordial leads Anteroseptal infarct, old Prolonged QT interval Compared to ECG 05/29/2018 13:22:56 Low QRS voltage now present Prolonged QT interval now present Sinus tachycardia no longer present Myocardial infarct finding still present Electronically Signed On 07-10-2018 4:42:09 PST by El Ge MD CM:EKGRPT:ELECTROCARDIOGRAM REPORT [id number] MARIANGEL DANIEL DRAFT REPORT MARIANGEL GALLEGOS M.D.
--- NOTE | ~2018-07-08 | PR ---
[place], [place] PROGRESS NOTE NAME: FAISAL PICKENS [facility] #: [id number] UNIT #: [id number] ROOM: 512 DOCTOR: BIJU SANTIZO MD BIRTHDATE: [birth year] DOS: 07/17/2018 I am seeing this patient for Dr. Ge. SUBJECTIVE: The patient has better breathing, legs are less swollen, but she complains of lot of pain in her feet, and also complained of less shortness of breath. No chest pain or palpitations. She feels little weak. No palpitations, loss of consciousness. PHYSICAL EXAMINATION: GENERAL: This is a patient who is moderately obese. She is alert. She is complaining about constipation, pains and few other things. VITAL SIGNS: Temperature is normal at 98.5 degrees, pulse is 88 and regular, blood pressure 117/65. NECK: JVP is normal. AJR is mildly positive. CARDIAC: Auscultation was normal with no significant abnormality. She still has 3+ edema in the feet and 2+ pretibial edema with modest degree of erythema in both legs and feet and legs are quite tender. RESPIRATORY: She is not tachypneic. Breath sounds are mildly diminished with very few adventitious sounds. LABORATORY DATA: Today demonstrated potassium of 2.6 and was 2.8 yesterday. Sodium 138, BUN is 14, creatinine 1.17, both of them have been declining with aggressive diuresis. Hemoglobin is 8.9 g/dL. Fluid balance for the last 3 days has been -7 liters and her weight has come down from 116 kilos to 106 kilos. IMPRESSION: 1. This patient has a significant degree of diastolic heart failure. She has finally began to diurese aggressively, which has resulted in severe hypokalemia. 2. Severe hypokalemia is present, but no dysrhythmias have been noted. RECOMMENDATIONS: 1. Continue with low dose of IV bumetanide along with metolazone. If her diuresis begins to taper off, I would still increase the dose of IV bumetanide. 2. Hypokalemia is being supplemented with the larger dose of p.o. potassium and 10 mEq of IV. 3. She keeps complaining about constipation, I ordered milk of magnesia for her. 4. Magnesium level and chem-6 will be done tomorrow. [place], [place] PROGRESS NOTE NAME: FAISAL PICKENS UNIT #: [id number] ROOM: 512 DOCTOR: BIJU SANTIZO MD BIRTHDATE: [birth year] BIJU SANTIZO MD CM:PNTRANS [id number] BIJU SANTIZO MD 07/17/18 1341 interface
--- NOTE | ~2018-07-08 | CON ---
[place], [place] REPORT OF CONSULTATION NAME: FAISAL PICKENS UNIT #: [id number] ROOM: 506 DOCTOR: HOWIE PARIKHNICKY BIRTHDATE: [birth year] DOS: 07/10/2018 HISTORY OF PRESENT ILLNESS: The patient is a very well known to me, was just discharged from the hospital 2 days ago at [place] with severe nonischemic cardiomyopathy and systolic congestive heart failure. The patient was admitted with intravenous diuretics and patient did quite well. We will try to put her on Entresto the patient already has an AICD. Unfortunately, the patient has chronic kidney disease and became hypotensive and we have to stop it. The patient to be admitted and being evaluated to be transferred to the rehab place. She does have chronic shortness of breath and chronic leg edema. She denies any chest discomfort. Her weight has reduced and the leg edema has also improved. PAST MEDICAL HISTORY: Congestive heart failure, severe cardiomyopathy, nonischemic, chronic kidney disease, diabetes, hypertension, morbid obesity, hyperlipidemia. PAST SURGICAL HISTORY: Hip replacements, hysterectomy, permanent pacemaker defibrillator. SOCIAL HISTORY: Does not drink or smoke. FAMILY HISTORY: Positive for coronary artery disease. HOME MEDICATIONS: Amiodarone, atorvastatin, Bumex, digoxin, carvedilol, lisinopril, metformin, potassium, terazosin. REVIEW OF SYSTEMS: CONSTITUTIONAL: No fever, no chills. HEENT: No elevated JVD. CARDIOVASCULAR: As per HPI. GASTROINTESTINAL: No nausea, no vomiting. GENITOURINARY: No dysuria. EXTREMITIES: Bilateral leg edema. PHYSICAL EXAMINATION: VITAL SIGNS: Blood pressure is 100/60. She is in paced rhythm. NECK: Supple, elevated JVD. LUNGS: Diminished breath sounds. HEART: Sounds are regular with an S3. ABDOMEN: Soft. EXTREMITIES: 2+ edema. NEUROLOGIC: Stable. LABORATORY DATA: Shows hemoglobin 9.1, hematocrit 33. Electrolytes: Sodium 137, potassium 3.8, and creatinine is 1. The patient has positive 149. IMPRESSION: Severe nonischemic cardiomyopathy, AICD, bilateral leg edema, systolic congestive heart failure. [place], [place] REPORT OF CONSULTATION NAME: FAISAL PICKENS UNIT #: [id number] ROOM: 506 DOCTOR: HOWIE PARIKH,NICKY BIRTHDATE: [birth year] RECOMMENDATIONS: We will consider to place the patient on 1500 mL fluid restriction. We can even try a very small dose of Entresto for that we have to hold the NEVA inhibitor for 48 hours and start at a smaller dose and we can retry 8. The patient increased activity. The patient with rehabilitation as an outpatient may be consideration should be given for congestive heart cardiac transplantation also. NICKY DENISE MD CM:CONSTR:REPORT OF CONSULTATION [id number] 07/10/18 1719 interface
--- NOTE | ~2018-07-08 | PR ---
[place], [place] PROGRESS NOTE NAME: FAISAL PICKENS UNIT #: [id number] ROOM: 506 DOCTOR: BIJU SANTIZO MD BIRTHDATE: [birth year] DOS: 07/11/2018 SUBJECTIVE: This patient was admitted 3 days ago with shortness of breath and increasing swelling of the legs and was treated with p.o. bumetanide and her fluid balance has been positive since admission. She still has a lot of swelling, shortness of breath as well. No chest pain or palpitations. She has not had any fever, chills or any nausea. Her appetite is fine. PHYSICAL EXAMINATION: GENERAL: The patient is moderately obese. She is pleasant, alert, oriented. She is not particularly tachypneic. VITAL SIGNS: Temperature is normal, pulse is 84 and regular, blood pressure 98/58. NECK: JVP is at 10-15 cm of water. LUNGS: Breath sounds are diminished with some adventitious sounds. EXTREMITIES: She has 3+ edema below the knees and mild edema of the thighs. Renal function is normal. Hemoglobin is 9.1 g/dL. I reviewed the chest x-ray, which was at least moderate cardiomegaly and some interstitial edema and right pleural effusion. IMPRESSION: 1. This patient has cardiomyopathy. 2. The patient has at least moderate degree of acute on chronic systolic heart failure. RECOMMENDATIONS: I discussed this case with the resident and mentioned to him to switch over to IV bumetanide 3 mg b.i.d. If that does not produce adequate diuresis, then metolazone should be added. She needs to stay in the hospital for the next 3 days or so. I think there is probably about 20 pounds of water that need to be unloaded unless prohibited by renal function. I saw this patient on behalf of Dr. Ge. [place], [place] PROGRESS NOTE NAME: FAISAL PICKENS UNIT #: [id number] ROOM: 506 DOCTOR: BIJU SANTIZO MD BIRTHDATE: [birth year] BIJU SANTIZO MD CM:PNTRANS [id number] BIJU SANTIZO MD 07/11/18 1313 interface
[2018-07-08 10:58] VITALS: BP 109/73
[2018-07-08 11:26] LABS: BASO # 0.1 10*3/uL (0.0-0.1); BASO % 0.7 % (0.0-1.0); EOS # 0.2 10*3/uL (0.0-0.4); EOS % 2.1 % (1.0-4.0); HEMATOCRIT 36.2 % (37.0-47.0); HEMOGLOBIN 9.9 g/dl (12.0-16.0); LYMPH # 1.9 10*3/uL (1.3-4.4); LYMPH % 17.9 % (27.0-41.0); MEAN CELL VOLUME 70.3 fl (81.0-99.0); MEAN CORPUSCULAR HGB 19.2 pg (27.0-31.0); MEAN CORPUSCULAR HGB CONC 27.3 g/dl (33.0-37.0); MONO # 1.1 10*3/uL (0.1-1.0); NUCLEATED RED BLOOD CELL 0.2 % (0.0-0.0); PLATELET COUNT AUTOMATED 362 10*3/uL (130-400); RED BLOOD COUNT 5.15 10*6/uL (4.10-5.10); RED CELL DISTRI WIDTH 20.7 % (0-14.5); WHITE BLOOD COUNT 10.4 10*3/uL (4.8-10.8)
[2018-07-08 11:41] LABS: ALBUMIN 3.1 gm/dl (3.1-4.5); CREATININE 1.13 mg/dL (0.55-1.02); POTASSIUM 4.3 mmol/L (3.5-5.1); TOTAL PROTEIN 6.6 gm/dL (6.4-8.2)
[2018-07-08 13:40] VITALS: BP 101/64
[2018-07-08 14:35] VITALS: BP 123/78
--- NOTE | 2018-07-08 14:35 | NUR ---
A 63, admitted to 5E, under the services of CHARLIE Gann DO with a diagnosis of EVALUATION FOR PLACEMENT AT [facility] . Chief complaint is UNABLE TO ABLULATE. Patient arrived via bed from ER. Monitor applied. Initial assessment completed. Vital signs taken and recorded. CHARLIE GANN DO notified of admission to the unit. Orders received. See assessment for past medical history, medications and allergies. Patient and/or family oriented to unit. [address] visitation policy reviewed. Clothing/patient valuable form completed. NAKUL KRAMER
[2018-07-08 14:45] VITALS: BP 123/78
--- NOTE | 2018-07-08 16:29 | NUR ---
DR RUST CAME TO OFFICE TO SAY THAT PT IS TELLING HIM SHE IS ALL SET UP TO GO TO [facility] ON WEDNESDAY AND SHE IS JUST HERE BECAUSE SHE HAS TO STAY UNTIL THEN. CALL PLACE TO WILFRIDO AT [facility] WHO SAYS THERE IS NOTHING SET UP FOR PT TO COME THERE, THAT SHE HAS CALLED THEM MULTIBLE TIMES TELLING THEM THAT TOO BUT THEY HAVE NO INFORMATION ON PT AND NOT ARRANGEMENTS HAVE BEEN MADE. CALLED DR MCNEIL AND INFORMED HIM THAT [facility] HAS NO PLANS FOR PT TO BE ADMITTED ON WEDNESDAY.
[2018-07-08] MEDS ORDERED: AMIODARONE HYD200 MG PO (16:58)
[2018-07-08] MEDS ORDERED: BUMETANIDE2 MG PO (16:59)
[2018-07-08] MEDS ORDERED: LIPITOR40 MG PO (16:59)
[2018-07-08] MEDS ORDERED: OMEPRAZOLE D/R20 MG PO (17:00)
[2018-07-08] MEDS ORDERED: MAGNESIUM OXID400 MG PO (17:01)
[2018-07-08] MEDS ORDERED: KLOR-CON 1010 ME1 PO (17:05)
[2018-07-08] MEDS ORDERED: GLIMEPIRIDE4 M1 PO (17:06)
[2018-07-08] MEDS ORDERED: COREG12.5 M1 PO (17:07)
[2018-07-08] MEDS ORDERED: PRESERVISION PO (17:26)
[2018-07-08 20:00] VITALS: BP 113/75
[2018-07-08] MEDS ORDERED: LORAZEPAM2 MG PO (20:55)
--- NOTE | 2018-07-08 22:19 | NUR ---
PATIENT MEDICATED WITH DULCOLAX FOR COMPLAINTS OF CONSTIPATION AND ATIVAN FOR COMPLAINTS OF ANXIETY. WILL CONTINUE TO MONITOR. CALL LIGHT IN REACH.
--- NOTE | 2018-07-08 22:26 | NUR ---
PATIENT MEDICATED WITH TYLENOL FOR COMPLAINTS OF A HEADACHE. WILL CONTINUE TO MONITOR.
[2018-07-09] VITALS: BP 103/71
--- NOTE | 2018-07-09 02:17 | NUR ---
PRN MEDICATIONS EFFECTIVE. PATIENT IN BED SLEEPING AT THIS TIME. NO SIGNS OR SYMPTOMS OF DISTRESS NOTED. RESPIRATIONS REGULAR AND NON-LABORED. WILL CONTINUE TO MONITOR. CALL LIGHT IN REACH.
[2018-07-09 06:53] LABS: BASO # 0.1 10*3/uL (0.0-0.1); BASO % 0.7 % (0.0-1.0); EOS # 0.2 10*3/uL (0.0-0.4); HEMOGLOBIN 9.1 g/dl (12.0-16.0); LYMPH # 2.4 10*3/uL (1.3-4.4); LYMPH % 28.9 % (27.0-41.0); MEAN CELL VOLUME 69.9 fl (81.0-99.0); MEAN CORPUSCULAR HGB 19.3 pg (27.0-31.0); MEAN CORPUSCULAR HGB CONC 27.6 g/dl (33.0-37.0); MEAN PLATELET VOLUME 9.1 fl (9.6-12.3); MONO # 0.9 10*3/uL (0.1-1.0); MONO % 10.9 % (3.0-9.0); NEUT # 4.7 10*3/uL (2.3-7.9); NEUT % 56.4 % (47.0-73.0); NUCLEATED RED BLOOD CELL 0.2 % (0.0-0.0); PLATELET COUNT AUTOMATED 313 10*3/uL (130-400); RED BLOOD COUNT 4.72 10*6/uL (4.10-5.10); RED CELL DISTRI WIDTH 20.4 % (0-14.5); WHITE BLOOD COUNT 8.4 10*3/uL (4.8-10.8)
[2018-07-09 07:08] LABS: BUN 24 mg/dl (7-24); CHLORIDE 97 mmol/L (98-107); CREATININE 1.09 mg/dL (0.55-1.02); IRON 18 ug/dL (50-170); PHOSPHOROUS 3.8 mg/dL (2.5-4.9); POTASSIUM 3.8 mmol/L (3.5-5.1); SODIUM 137 mmol/L (136-145)
[2018-07-09 07:19] LABS: TOTAL IRON BINDING CAPACITY 541 ug/dl (250-450)
[2018-07-09 07:22] LABS: DIGOXIN 1.42 ng/ml (0.8-2.0)
[2018-07-09 07:24] LABS: ACT PARTIAL THROMBO TIME 25.9 SECONDS (20.8-31.5); INTERNATIONAL NORM RATIO 1.4 (2.0-3.5)
[2018-07-09 08:00] VITALS: BP 100/64
--- NOTE | 2018-07-09 11:00 | NUR ---
PHYSICAL THERAPY PT EVAL COMPLETED ON LEVEL 5: FULL EVALUATION TO FOLLOW; RECOMMEND PT WHILE HERE TO ADDRESS DECREASED STRENGTH, ENDURANCE AND BALANCE AND THUS DECREASED FUNCTIONAL MOBILITY. PT EVAL IS MODERATE COMPLEXITY BASED ON CHART REVIEW , TEST RESULTS AND EVALUATION: [id number]. D/C RECOMMENDATIONS: STATES SHE IS GOING TO SNF AT [facility] ON D/C THAT SHE HAS ALREADY SPOKE WITH D.O.N. THERE AND SHE IS DEFINITELY GOING THERE LONG HER INSURANCE APPROVES. SHE WAS (I) PRIOR AND WOULD BENEFIT FROM SNF TO REGAIN (I). IF SHE DOES NOT MEET CRITERIA THEN RECOMMEND HOME OR OUTPATIENT PT SERVICES. THANKS FOR REFERRAL [facility] PT
[2018-07-09 12:00] VITALS: BP 96/48
[2018-07-09 16:00] VITALS: BP 100/57
--- NOTE | 2018-07-09 18:26 | NUR ---
PT STATES COREG DOSE WAS DECREASED TO 6.25 BID. PT GETTING 12.[address] Serafin MEZA NOTIFIED. ORDERS RECEIVED. DR MEZA ALSO NOTIFIED THAT PT IS REQUESTING SOMETHING FOR COUGH. ORDERS RECEIEVED.
[2018-07-09 20:00] VITALS: BP 105/69
--- NOTE | 2018-07-09 20:00 | NUR ---
IV started left forearm with #22 protective cath after 1 attempts. Site prepped with Chloroprep. Sterile dressing applied. Patient tolerated procedure well. AMANDA BLANCHARD
--- NOTE | 2018-07-09 20:02 | NUR ---
IV discontinued. RIGHT HAND. Site asymptomatic. Pressure applied. Sterile dressing applied. AMANDA BLANCHARD
--- NOTE | 2018-07-09 20:10 | NUR ---
DR NAGY NOTIFIED OF PATIENTS NAUSEA AND VOMITING AT THIS TIME. STATES WILL PUT ORDERS IN.
--- NOTE | 2018-07-09 20:41 | NUR ---
PATIENT MEDICATED FOR C/O NAUSEA/VOMITING AND PAIN PER DRS ORDERS AT THIS TIME. SEE EMAR. RN WILL CONTINUE TO MONITOR
--- NOTE | 2018-07-09 21:45 | NUR ---
PATIENT STATES EARLIER MEDICATION WAS EFFECTIVE
--- NOTE | 2018-07-09 23:39 | NUR ---
24 HR chart check completed.
[2018-07-10] VITALS: BP 104/69
--- NOTE | 2018-07-10 01:28 | NUR ---
PATIENT REQUESTING ANXIETY MEDICATION AT THIS TIME. ATIVAN ADMINISTERED PRESCRIBED. WILL MONITOR FOR EFFECTIVENESS.
--- NOTE | 2018-07-10 02:28 | NUR ---
PATIENT RESTING WITH EYES CLOSED AT THIS TIME. RESPERS EASY AND UNLABORED. WILL MONITOR.
[2018-07-10 08:00] VITALS: BP 107/74
--- NOTE | 2018-07-10 09:25 | NUR ---
PT MEDICATED WITH NORCO FOR C/O HEADACHE. WILL MONITOR.
--- NOTE | 2018-07-10 10:45 | NUR ---
PT RESTING QUIETLY. NO PROBLEMS NOTED.
[2018-07-10 12:00] VITALS: BP 116/82
[2018-07-10 16:00] VITALS: BP 122/80
[2018-07-10 20:00] VITALS: BP 99/61
--- NOTE | 2018-07-10 20:08 | NUR ---
PATIENT STATING THAT SHE IS CONSTIPATED AND ALREADY RECEIVED DULCOLAX TODAY (AT 1653) AND IT HASN'T BEEN EFFECTIVE. MOM ADMINISTERED PRESCRIBED. WILL MONITOR FOR EFFECTIVENESS.
--- NOTE | 2018-07-10 20:49 | NUR ---
24 HR chart check completed.
--- NOTE | 2018-07-10 22:52 | NUR ---
PATIENT REQUESTING MEDICATION FOR ANXIETY. ATIVAN ADMINISTERED PRESCRIBED. WILL MONITOR FOR EFFECTIVENESS.
--- NOTE | 2018-07-10 23:52 | NUR ---
PATIENT RESTING WITH EYES CLOSED AT THIS TIME. RESPERS EASY AND UNLABORED. CALL JAMES WITHIN REACH. WILL MONITOR.
[2018-07-11] VITALS: BP 104/79
--- NOTE | 2018-07-11 00:56 | NUR ---
PATIENT REQUESTING PAIN MEDICATION FOR HEADACHE. NORCO ADMINISTERED PRESCRIBED. WILL MONITOR FOR EFFECTIVENESS.
--- NOTE | 2018-07-11 01:56 | NUR ---
PATIENT RESTING WITH EYES CLOSED AT THIS TIME. RESPERS EASY AND UNLABORED AT THIS TIME. CALL JAMES WITHIN REACH. WILL MONITOR.
[2018-07-11 08:00] VITALS: BP 98/58
--- NOTE | 2018-07-11 08:06 | NUR ---
Patient requested a referral to [facility]; contacted facility and faxed referral. Patient will require a precert.
--- NOTE | 2018-07-11 08:54 | NUR ---
Patient not available for Occupational Therapy evaluation as she is with the nurse. Bharti Cannon OTR/l
--- NOTE | 2018-07-11 10:33 | NUR ---
Occupational Therapy evaluation completed on 5 with full eval to follow. Precautions include fall risk, SOB w/ min exertion, impulsive, O2 use continuously,assist with LB ADLs. Patient is moderate complexity level 12082 via chart review, testing and evaluation. Recommend OT per POC and SNF to enable return home alone at indep level in ADl/IADLs. Thank you. Bharti Cannon OTR/l
--- NOTE | 2018-07-11 11:05 | NUR ---
PHYSICAL THERAPY Patient seen this pm 1:1 for therapy visit and was sitting up EOB upon therapist arrival. Patient reports B LE's feeling "heavy" this morning and has concerns of decreased standing activity tolerance. Patient performed seated B LE therex, all planes x 15 reps each to increase LE strength and demonstrated increased difficulty reaching full AROM during LAQ / marching R LE. Patient also ambulated without AD, 30'x 1, CGA, demonstrating slow, steady guerita. Patient paced herself nicely by taking several standing rest breaks, < 15 seconds each, along with PLB technique for improved energy conservation. Patient stated, she felt more confident and less fearful walking this session. Patient returned to and remained seated EOB with call light, tray table and telephone. Will continue per POC as tolerated, total treatment time 23 minutes. Qamar Sheriff, BANK TELLER MACHINE MECHANIC
[2018-07-11 12:00] VITALS: BP 138/64
--- NOTE | 2018-07-11 12:35 | NUR ---
Construction Trench Digger in to talk to patient. Patient states lives at HOME with ALONE. There are NO steps in the home. Physician: [facility]: [facility] Home health services: [facility] SHE THINKS Patient's level of ADLs: MODERATE ASSIST Patient has working utilities: YES DME: NONE Follow-up physician's appointment after d/c: WILL BE MADE BY HOSPITALIST NURSE DIRECTOR ON DISCHARGE Does patient want to access PORTAL?: NO Discharge plan PT STATES SHE LIVES AT HOME ALONE, BUT HAS BEEN TOO WEAK TO TAKE CARE OF HERSELF SINCE LEAVING [facility]. PT STATES SHE HAS HAD HH AND THINKS IT IS [facility] BUT NOT SURE. STATES SHE WANTS TO GO TO [facility] FOR REHAB BEFORE GOING HOME. WILL CONTINUE TO FOLLOW. . CHACHO BUCHANAN
--- NOTE | 2018-07-11 13:15 | NUR ---
Patient clincals and therapy faxed to [facility] for referral precert; waiting on auth.
--- NOTE | 2018-07-11 15:26 | NUR ---
PHYSICAL THERAPY Patient presented to therapy in supine position with head of bed elevated and report of having CHF, which makes her breathing more difficult. Patient Patient is not on spO2. Patient agrees to therapy session. Patent was identified by name chino CA. Patient performed supine to sitting at EOB transfer with SBA. Patient transferred STS with CGA X 1. Patient ambulated with no assistive device and CGA X 1 for 150' x 1 with multiple episodes of LOB with MIN A X 1 required to correct LOBs as needed by therapist. Patient became unsteady as gait continued. Patient was left in sitting at EOB with call light within reach and tray table near patient. Patient wanted bedside commode moved closer to her , which was done. Patient was 1:1 with this MACHINE TOOL REBUILDER for 16 minutes total. LUIS RAJPUT MACHINE TOOL REBUILDER
[2018-07-11 16:00] VITALS: BP 105/58; BP 112/53
[2018-07-11 20:00] VITALS: BP 101/83
--- NOTE | 2018-07-11 21:43 | NUR ---
PATIENT REQUESTING ANXIETY MEDICATION. ATIVAN ADMINISTERED PRESCRIBED. WILL MONITOR FOR EFFECTIVENESS.
[2018-07-12] VITALS: BP 116/83
--- NOTE | 2018-07-12 | NUR ---
SLEEPING. NO DISTRESS NOTED. RESPIRATIONS EASY. VSS. CALL LIGHT WITHIN REACH. BED ALARM APPLIED FOR SAFETY
--- NOTE | 2018-07-12 00:16 | NUR ---
24 HR chart check completed.
--- NOTE | 2018-07-12 01:39 | NUR ---
MEDICATED WITH TYLENOL PER PRN ORDER FOR COMPLAINTS OF HEADACHE RATING A 3. CALL LIGHT WITHIN REACH. WILL MONITOR FOR EFFECTIVENESS
--- NOTE | 2018-07-12 03:00 | NUR ---
TYLENOL APPEARS EFFECTIVE. SLEEPING. BED ALARM MAINTAINED
--- NOTE | 2018-07-12 06:00 | NUR ---
SLEPT THROUGHOUT NIGHT WITH NO DISTRESS NOTED. RESPIRATIONS EASY. CALL LIGHT WITHIN REACH. NO VOICED COMPLAINTS THIS SHIFT
[2018-07-12 06:21] LABS: BASO # 0.1 10*3/uL (0.0-0.1); BASO % 0.6 % (0.0-1.0); EOS # 0.3 10*3/uL (0.0-0.4); EOS % 2.1 % (1.0-4.0); HEMATOCRIT 35.6 % (37.0-47.0); HEMOGLOBIN 9.9 g/dl (12.0-16.0); LYMPH % 32.4 % (27.0-41.0); MEAN CELL VOLUME 70.1 fl (81.0-99.0); MEAN CORPUSCULAR HGB 19.5 pg (27.0-31.0); MEAN CORPUSCULAR HGB CONC 27.8 g/dl (33.0-37.0); MEAN PLATELET VOLUME 9.1 fl (9.6-12.3); MONO # 1.2 10*3/uL (0.1-1.0); MONO % 9.6 % (3.0-9.0); NEUT # 6.6 10*3/uL (2.3-7.9); NEUT % 54.2 % (47.0-73.0); NUCLEATED RED BLOOD CELL 0.2 % (0.0-0.0); PLATELET COUNT AUTOMATED 410 10*3/uL (130-400); RED BLOOD COUNT 5.08 10*6/uL (4.10-5.10); RED CELL DISTRI WIDTH 21.1 % (0-14.5); WHITE BLOOD COUNT 12.2 10*3/uL (4.8-10.8)
[2018-07-12 06:51] LABS: CREATININE 1.52 mg/dL (0.55-1.02); POTASSIUM 4.5 mmol/L (3.5-5.1)
--- NOTE | 2018-07-12 08:15 | NUR ---
IN TO SEE PATIENT.
--- NOTE | 2018-07-12 08:54 | NUR ---
PT MEDICATED WITH PO ATIVAN AND PO NORCO PER PRN ORDER FOR C/O ANXIETY AND HEADACHE. WILL [id number] EFFECTIVENESS. CALL LIGHT WITHIN REACH.
[2018-07-12 09:15] VITALS: BP 117/88
--- NOTE | 2018-07-12 10:35 | NUR ---
PHYSICAL THERAPY Patiginny seen this am 1:1 for therapy visit and was supine in bed upon therapist arrival. Patient voices no new c/o's other than feeling a little depressed due to the amount of overwhelming information she receives from multiple doctors / nurses. Patient transfers supine to stand CGA and reports no c/o's dizziness this session. Patient ambulates CGA without AD 25' x 2 to bathroom, completing toilet transfer with use of single handrail support. Patient demonstrates slow guerita and slightly improved smoother gait pattern, decreased B arm swing / decreased stride. Patient returned to supine in bed with mild fatigue and remained with call light, tray table and bed alarm activated for safety. Will continue per POC as tolerated, total treatment time 13 minutes. Qamar Sheriff, VICE PRESIDENT OF PROCUREMENT
[2018-07-12 11:45] VITALS: BP 95/66
--- NOTE | 2018-07-12 12:00 | NUR ---
PT REFUSING BED ALARM. VISITOR IN ROOM AT THIS TIME. ENCOURAGED TO USE CALL LIGHT FOR ASSISTANCE. PT VOICED UNDERSTANDING.
--- NOTE | 2018-07-12 12:08 | NUR ---
OT NOTE Pt was seen this A.M. 1:1 for 16 minute OT session. Upon arrival pt was sitting upright on the EOB. Pt idnetified by name and and had no complaints at this time. Requested for pt to dunia B socks and using personal adaptive techniques pt was unable and became SOB. Demonstrated and educated pt on use of LB adaptive equipment (sock aid and supervisor intelligence analyst) and use for energy conservation. Pt trialed, for first sock pt required Annie due to confusion with sequencing and pulling up over her heel. Second sock donned with SBA. Pt then doffed her socks using the supervisor intelligence analyst with Annie due to being unable to grasp, educated pt to trial the hook instead of the coping machine assembler and pt was able to complete with SBA and extra time given. Pt was issued a supervisor intelligence analyst and sock aid at this time. Attempted to complete some other tasks and pt declined stating "I am done for today" resulting in an activity tolerance of aprox 15 minutes. Pt was left sitting upright on the EOB with visitor in the room and call light in hand. Continue with rec D/C plan to SNF. BEVERLEY Pulliam/Mick
[2018-07-12 16:00] VITALS: BP 104/49
--- NOTE | 2018-07-12 19:05 | NUR ---
BEDSIDE REPORT OBTAINED FROM AID. PATIENT IS AWAKE & ALERT, PARTICIPATED IN REPORT. QUESTIONS AND CONCERNS ANSWERED. PATIENT VOICED NO COMPLAINTS AT THIS TIME. NO DISTRESS NOTED, RESP ARE ERND ON ROOM AIR. BED IS LOCKED IN LOWEST POSITION. PATIENT REFUSED X3 FOR BED ALARM. PRIOR NURSE STATES PATIENT WAS STEADY ON FEET TODAY BUT REFUSED BED ALARM WELL. CALL LIGHT REINFORCEMENT AND LEFT WITHIN REACH.
[2018-07-12 20:00] VITALS: BP 98/74
--- NOTE | 2018-07-12 20:50 | NUR ---
PATIENT MEDICATED WITH ATIVAN FOR C/O ANXIETY AND AGGITATION. 1-1 INEFFECTIVE PRIOR TO ADMINISTRATION. WILL MONITOR
--- NOTE | 2018-07-12 20:50 | NUR ---
PATIENT WANTS TO GO TO BED AT THIS TIME. REQUESTING SLEEPING AID, MEDICATED WITH RESTORIL. WILL MONITOR.
--- NOTE | 2018-07-12 21:50 | NUR ---
RESTORIL INEFFECTIVE AT THIS TIME. PATIENT IS STILL AWAKE. WILL MONITOR.
--- NOTE | 2018-07-12 21:50 | NUR ---
ATIVAN EFFECTIVE FOR ANXIETY.
--- NOTE | 2018-07-12 22:15 | NUR ---
PATIENT REQUESETD NORCO FOR C/O HEADACHE, REFUSED TYLENOL. WILL MONITOR.
--- NOTE | 2018-07-12 23:15 | NUR ---
NORCO APPEARS TO BE EFFECTIVE. PATIENT RESTING IN BED AT THIS TIME, EYES CLOSED. CALL LIGHT LEFT WITHIN REACH.
[2018-07-13] VITALS: BP 99/67
--- NOTE | 2018-07-13 | NUR ---
SLEEPING. CALL LIGHT LEFT WITHIN REACH.
[2018-07-13 06:59] LABS: CREATININE 1.37 mg/dL (0.55-1.02); POTASSIUM 4.5 mmol/L (3.5-5.1)
[2018-07-13 07:04] LABS: BASO # 0.1 10*3/uL (0.0-0.1); BASO % 0.6 % (0.0-1.0); EOS # 0.3 10*3/uL (0.0-0.4); EOS % 2.6 % (1.0-4.0); HEMATOCRIT 36.7 % (37.0-47.0); HEMOGLOBIN 9.9 g/dl (12.0-16.0); LYMPH # 3.8 10*3/uL (1.3-4.4); LYMPH % 28.4 % (27.0-41.0); MEAN CELL VOLUME 70.3 fl (81.0-99.0); MEAN PLATELET VOLUME 9.2 fl (9.6-12.3); MONO # 1.3 10*3/uL (0.1-1.0); MONO % 9.5 % (3.0-9.0); NEUT # 7.6 10*3/uL (2.3-7.9); NEUT % 57.8 % (47.0-73.0); NUCLEATED RED BLOOD CELL 0.3 % (0.0-0.0); PLATELET COUNT AUTOMATED 410 10*3/uL (130-400); RED BLOOD COUNT 5.22 10*6/uL (4.10-5.10); RED CELL DISTRI WIDTH 21.2 % (0-14.5); WHITE BLOOD COUNT 13.2 10*3/uL (4.8-10.8)
[2018-07-13 08:00] VITALS: BP 94/48
[2018-07-13 08:07] VITALS: BP 90/48
--- NOTE | 2018-07-13 08:54 | NUR ---
Pt is seen for 15 min 1:1 OT session this date. Pt verifies name and verbally, wrist band checked . Pts call light is on upon entering. When asked what diana could help this , she states she "just wants answers" she states she has been in hospital too long and nobody has answers for her. pt is extremely aggitated. Pt declines any ADLs, however, completes bed mobility and supine to sit. pt declines any exercises this date. Pt educated on breathing technqiues due to aggitated state. Pt educated on importance of therpay, however, she states that she does not need therapy in hospital and will recieve it when she goes to rehab facilty. will check with pt later for therapy participation dave ortiz/anna
--- NOTE | 2018-07-13 09:15 | NUR ---
AM LISINOPRIL AND COREG HELD FOR BLOOD PRESSURE 90/48 MANUALLY.
--- NOTE | 2018-07-13 09:42 | NUR ---
Patient updated clincals and therapy notes faxed to [facility] for precert, still waiting for auth.
--- NOTE | 2018-07-13 10:53 | NUR ---
Patient has received auth for [facility], she can go if medically stable for discharge.
[2018-07-13 12:00] VITALS: BP 90/60
--- NOTE | 2018-07-13 12:01 | NUR ---
MEDICATED WITH PRN PO ATIVAN AND NORCO FOR ANXIETY AND HEADACHE.
--- NOTE | 2018-07-13 12:49 | NUR ---
PT AGITATED THIS AM WANTS TO KNOW WHEN SHE IS GOING TO [facility]. EXPLAINED THAT WE NEED TO WAIT FOR INSURANCE FOR PRECERT. PT VOICES UNDERSTANDING. WILL CONTINUE TO FOLLOW.
--- NOTE | 2018-07-13 13:51 | NUR ---
PRN PO ATIVAN AND NORCO BOTH EFFECTIVE, PER PATIENT.
--- NOTE | 2018-07-13 15:09 | NUR ---
PHYSICAL THERAPY PT SEATED EOB WITH NURSE PRESENT ON INVESTIGATOR ARRIVAL. PT REPORTS MOSQUERA AND FEET HURT WHEN SHE WALKS DUE TO SWELLING, BUT OTHERWISE DENIES PAIN. PT AGREEABLE TO PERFORM BRIEF GAIT PROGRAM, BUT STATES THAT SHE WILL DO EXERCISES IN BED ON HER OWN LATER. PT AMBULATED 20' X2 WITH BRIEF SEATED REST BETWEEN SETS, CLOSE SBA-CGA DUE TO UNSEADY GAIT AND LOB. PT ALSO REQUIRED VCS FOR BREATHING TECHNIQUE AT 10' DUE TO SOB. PT ABLE TO COMPLETE STS WITH SUPERVISION. TOTAL TX TIME 15 MINS WITH 1:1 INVESTIGATOR. PT SEATED EOB WITH CALL LIGHT IN REACH AT CONCLUSION OF TREATMENT. TIKI STEINER INVESTIGATOR
[2018-07-13 16:00] VITALS: BP 91/60
--- NOTE | 2018-07-13 19:26 | NUR ---
PATIENT SITTING UP IN BED WATCHING TV AT THIS TIME. VOICES NO NEEDS OR COMPLAINTS AT THIS TIME. BED IS IN LOWEST POSITION WITH WHEELS LOCKED. CALL LIGHT IS WITHIN REACH. ENCOURAGED TO USE CALL LIGHT FOR NEEDS. WILL MONITOR.
[2018-07-13 20:00] VITALS: BP 97/80
[2018-07-14] VITALS: BP 88/60
--- NOTE | 2018-07-14 04:39 | NUR ---
PATIENT RESTING IN BED WITH EYES CLOSED. RESPIRATIONS ARE EASY AND REGULAR. NO DISTRESS IS NOTED. CALL LIGHT IS WITHIN REACH. WILL MONITOR.
[2018-07-14 07:59] LABS: BASO # 0.1 10*3/uL (0.0-0.1); BASO % 0.7 % (0.0-1.0); EOS # 0.5 10*3/uL (0.0-0.4); EOS % 3.3 % (1.0-4.0); HEMATOCRIT 39.3 % (37.0-47.0); HEMOGLOBIN 10.5 g/dl (12.0-16.0); LYMPH # 3.6 10*3/uL (1.3-4.4); LYMPH % 26.9 % (27.0-41.0); MEAN CELL VOLUME 70.2 fl (81.0-99.0); MEAN CORPUSCULAR HGB 18.8 pg (27.0-31.0); MEAN CORPUSCULAR HGB CONC 26.7 g/dl (33.0-37.0); MEAN PLATELET VOLUME 8.9 fl (9.6-12.3); MONO # 1.4 10*3/uL (0.1-1.0); MONO % 10.7 % (3.0-9.0); NEUT # 7.7 10*3/uL (2.3-7.9); NEUT % 57.4 % (47.0-73.0); NUCLEATED RED BLOOD CELL 0.1 10*3/uL (0.0-0.0); NUCLEATED RED BLOOD CELL 0.5 % (0.0-0.0); PLATELET COUNT AUTOMATED 396 10*3/uL (130-400); RED CELL DISTRI WIDTH 21.4 % (0-14.5); WHITE BLOOD COUNT 13.4 10*3/uL (4.8-10.8)
[2018-07-14 08:00] VITALS: BP 124/84
--- NOTE | 2018-07-14 08:42 | NUR ---
Patient has received auth to go to [facility], can go today if medically stable for discharge. Precert is only good for today.
[2018-07-14 08:45] LABS: ALBUMIN 3.1 gm/dl (3.1-4.5); CREATININE 1.41 mg/dL (0.55-1.02); PHOSPHOROUS 2.7 mg/dL (2.5-4.9)
--- NOTE | 2018-07-14 10:40 | NUR ---
PHYSICAL THERAPY Patient was supine in bed this am when approached for therapy visit and reports increased anxiety. Patient states she was given Ativan by her Nurse and wanted to rest this morning, requesting to be seen this afternoon. Will continue per POC as able. Qamar Sheriff, ELECTRONIC COMPONENT PROCESSOR
--- NOTE | 2018-07-14 10:43 | NUR ---
OT NOTE Attempted to see pt this A.M. for OT session and upon arrival pt had reports of increased anxiety and fatigue. Requesting to rest at this time and be seen this P.M.. Notified nurse of pt's report of anxiety. Will check back at a later time/date. BEVERLEY Pulliam/Mick
[2018-07-14 12:00] VITALS: BP 90/53
--- NOTE | 2018-07-14 14:20 | NUR ---
PHYSICAL THERAPY Patient seen this pm 1:1 for therapy visit and was supine in bed upon therapist arrival. Patient voices no new c/o's at this time and reports no dizziness during standing activities the past few days. Patient transfers supine to sit EOB with CGA, taking a minute or so to collect herself before completing sit to stand transfer CGA. Patient ambulates MILK TANKER DRIVER/CGA, 40'x 1, demonstrating slow, steady guerita, with "waddling" gait pattern. Patient able to complete all gait with only single standing rest break, < 15 seconds, returning to EOB sit. Patient remained EOB with call light, tray table and telphone. Will continue per POC as tolerated, total treatment time 14 minutes. Qamar Sheriff, ELL TEACHER
--- NOTE | 2018-07-14 14:36 | NUR ---
OT NOTE Pt was seen this P.M. 1:1 for 15 minute OT session. Upon arrival pt was supine in bed, pt identified by name and . Pt had no complaints at this time. Pt transferred supine to sit EOB with CGA and good use of bed rail. While sitting EOB requested for pt to dunia her socks, pt was unable. Requested for pt to use sock aid and lastex thread winder that was provided in previous session. Pt was unable to remember the steps to complete the task. Re educated on use of sock aid, pt trialed and stated she wanted to try using the lastex thread winder instead. provided pt with the lastex thread winder and she required modA to dunia sock. Trialed second sock using the sock aid and she was able to complete with Annie. Pt was left sitting upright on the EOB with call light in hand and tray table in place. COntinue with rec D/C plan to SNF. BEVERLEY Pulliam/Mick
[2018-07-14 16:00] VITALS: BP 98/57
--- NOTE | 2018-07-14 18:59 | NUR ---
PATIENT TALKING ON TELEPHONE AT THIS TIME. NO DISTRESS NOTED. CALL LIGHT IS WITHIN REACH. WILL CONTINUE TO MONITOR.
[2018-07-14 20:00] VITALS: BP 96/73
[2018-07-15] VITALS: BP 119/85
--- NOTE | 2018-07-15 03:48 | NUR ---
RESTING IN BED ON RIGHT SIDE WITH EYES CLOSED. RESPIRATIONS ARE EASY AND REGULAR. NO DISTRESS IS NOTED. CALL LIGHT IS WITHIN REACH. WILL MONITOR.
[2018-07-15 06:53] LABS: BASO # 0.1 10*3/uL (0.0-0.1); BASO % 0.6 % (0.0-1.0); EOS # 0.5 10*3/uL (0.0-0.4); EOS % 3.8 % (1.0-4.0); HEMATOCRIT 33.7 % (37.0-47.0); HEMOGLOBIN 9.5 g/dl (12.0-16.0); LYMPH # 2.5 10*3/uL (1.3-4.4); LYMPH % 20.8 % (27.0-41.0); MEAN CELL VOLUME 69.5 fl (81.0-99.0); MEAN CORPUSCULAR HGB 19.6 pg (27.0-31.0); MEAN CORPUSCULAR HGB CONC 28.2 g/dl (33.0-37.0); MEAN PLATELET VOLUME 8.7 fl (9.6-12.3); MONO # 1.2 10*3/uL (0.1-1.0); MONO % 9.8 % (3.0-9.0); NEUT # 7.7 10*3/uL (2.3-7.9); NEUT % 64.1 % (47.0-73.0); NUCLEATED RED BLOOD CELL 0.1 10*3/uL (0.0-0.0); NUCLEATED RED BLOOD CELL 0.4 % (0.0-0.0); PLATELET COUNT AUTOMATED 377 10*3/uL (130-400); RED BLOOD COUNT 4.85 10*6/uL (4.10-5.10); RED CELL DISTRI WIDTH 20.8 % (0-14.5)
[2018-07-15 06:56] LABS: ALBUMIN 2.8 gm/dl (3.1-4.5); CREATININE 1.31 mg/dL (0.55-1.02); PHOSPHOROUS 2.6 mg/dL (2.5-4.9)
[2018-07-15 07:40] LABS: POTASSIUM 3.8 mmol/L (3.5-5.1)
[2018-07-15 08:00] VITALS: BP 100/50
--- NOTE | 2018-07-15 11:12 | NUR ---
PHYSICAL THERAPY This SEAM CHECKER attempted to see patient at 10:00 AM and patient declined treatment due to not feeling well and being very tired. WILL CHECK BACK LATER. LUIS RAJPUT SEAM CHECKER
--- NOTE | 2018-07-15 11:20 | NUR ---
Patient was seen this date and time for 10 minutes 1:1 occupational therapy treatment. Upon arrival patient was seated at EOB with tray in front of her. Patient did not report any complaints at this time. It was requested that she would dunia her socks using her sock aide that was provided in previous sessions. She had difficulty remembering the steps on how to use the device and requested a physical demonstration be provided. Patient attempted place place a sock on 3 times and required min assistance each time due to decreased ability to seqeunce steps, difficulty placing foot in sock along with pulling up over heal. Patient would benefit from services to address increasing safety and independence with ADLs. Patient was left sitting upright at EOB with call light in reach. Continue with recommended D/C plan to [facility] Marimar VÁZQUEZ/Mick
[2018-07-15 12:00] VITALS: BP 111/77
--- NOTE | 2018-07-15 14:23 | NUR ---
PHYSICAL THERAPY Patient presented to therapy in supine with no complaints and no spO2 with head of bed elevated. Patient agrees to therapy session. Patient was identified by name and . Patient performed supine to sitting at EOB transfer with SBA. Patient STS transfer with SBA. Patient ambulated with no assistive device and CGA/ACCOUNT MANAGEMENT ASSISTANT for 100' x 1 with multiple LOB during gait. Patient transferred to sitting position on EOB with SBA. Patient was left in sitting position on EOB with call light within reach and tray table near patient. Patient is ambulating to restroom in room throughout the day MOD I. Patient was 1:1 with this PARTS COUNTER SALES PERSON for 15 minutes total. LUIS RAJPUT PARTS COUNTER SALES PERSON
--- NOTE | 2018-07-15 14:29 | NUR ---
Patient's precert for [facility] has , will have to restart when patient is ready for discharge.
[2018-07-15 16:00] VITALS: BP 102/72
[2018-07-15 20:00] VITALS: BP 103/76
[2018-07-16] VITALS (7 sets, daily range): BP systolic 82–120; BP diastolic 43–94
--- NOTE | 2018-07-16 00:20 | NUR ---
PATIENT BLOOD PRESSURE 84/48 MANUALLY. PATIENT ASYMPTOMIAC. NOTIFIED DR. CHANCE OF BLOOD PRESSURE. NO NEW ORDERS AT THIS TIME. WILL CONTINUE TO MONITOR.
--- NOTE | 2018-07-16 01:28 | NUR ---
PATIENT CONCERNED ABOUT HER BLOOD PRESSURE BEING TO LOW. ASKED THIS NURSE TO RECHECK. BLOOD PRESSURE NOW IS 82/50.
--- NOTE | 2018-07-16 01:30 | NUR ---
NOTIFIED DR. CHANCE OF BLOOD PRESSURE. NO NEW ORDERS RECEIVED AT THIS TIME.
--- NOTE | 2018-07-16 04:26 | NUR ---
PATIENT BLOOD PRESSURE, 82/52. NOTIFIED DR. MACKAY. NO NEW ORDERS, WILL CONTINUE TO MONITOR.
[2018-07-16 07:44] LABS: BASO # 0.1 10*3/uL (0.0-0.1); BASO % 0.5 % (0.0-1.0); EOS # 0.4 10*3/uL (0.0-0.4); EOS % 3.7 % (1.0-4.0); HEMATOCRIT 33.5 % (37.0-47.0); HEMOGLOBIN 9.2 g/dl (12.0-16.0); LYMPH # 2.4 10*3/uL (1.3-4.4); LYMPH % 23.4 % (27.0-41.0); MEAN CELL VOLUME 69.8 fl (81.0-99.0); MEAN CORPUSCULAR HGB 19.2 pg (27.0-31.0); MEAN CORPUSCULAR HGB CONC 27.5 g/dl (33.0-37.0); MEAN PLATELET VOLUME 8.9 fl (9.6-12.3); MONO # 1.1 10*3/uL (0.1-1.0); MONO % 11.2 % (3.0-9.0); NEUT # 6.2 10*3/uL (2.3-7.9); NEUT % 60.3 % (47.0-73.0); NUCLEATED RED BLOOD CELL 0.3 % (0.0-0.0); PLATELET COUNT AUTOMATED 347 10*3/uL (130-400); WHITE BLOOD COUNT 10.2 10*3/uL (4.8-10.8)
[2018-07-16 07:51] LABS: CREATININE 1.22 mg/dL (0.55-1.02)
[2018-07-16 07:55] LABS: POTASSIUM 2.8 mmol/L (3.5-5.1)
--- NOTE | 2018-07-16 12:09 | NUR ---
PHYSICAL THERAPY Attempted to see pt this AM for her therapy session-- pt states she just laid back into bed from walk- nursing staff informed this CAKE WINDER that pt walked down to nurses station independently prior to CAKE WINDER arrival; pt educated on need for assistance for safety to decrease fall risk. Kimber Bedolla, CAKE WINDER
--- NOTE | 2018-07-16 20:00 | NUR ---
Patient resting quietly with no c/o discomfort. Respirations easy and regular. Vital signs stable. No overt distress. TERRY DESAI
--- NOTE | 2018-07-16 22:16 | NUR ---
MEDICATED WITH PO ATIVAN AND DULCOLAX ORDERED PER PT REQUEST FOR C/O ANXIETY AND CONSTIPATION.
[2018-07-17] VITALS: BP 111/68
--- NOTE | 2018-07-17 00:50 | NUR ---
MEDICATIONS EFFECTIVE.
--- NOTE | 2018-07-17 03:13 | NUR ---
24 HR chart check completed.
--- NOTE | 2018-07-17 04:00 | NUR ---
Patient resting quietly with no c/o discomfort. Respirations easy and regular. Vital signs stable. No overt distress. TERRY DESAI
--- NOTE | 2018-07-17 06:02 | NUR ---
MEDICATED WITH PO TYLENOL ORDERED PER PT REQUEST FOR C/O BILAT FOOT PAIN.
[2018-07-17 07:13] LABS: BASO # 0.1 10*3/uL (0.0-0.1); BASO % 0.5 % (0.0-1.0); EOS # 0.3 10*3/uL (0.0-0.4); HEMATOCRIT 32.8 % (37.0-47.0); HEMOGLOBIN 8.9 g/dl (12.0-16.0); LYMPH # 2.3 10*3/uL (1.3-4.4); LYMPH % 21.4 % (27.0-41.0); MEAN CELL VOLUME 68.9 fl (81.0-99.0); MEAN CORPUSCULAR HGB 18.7 pg (27.0-31.0); MEAN CORPUSCULAR HGB CONC 27.1 g/dl (33.0-37.0); MEAN PLATELET VOLUME 8.8 fl (9.6-12.3); MONO # 1.3 10*3/uL (0.1-1.0); NEUT # 6.7 10*3/uL (2.3-7.9); NEUT % 62.5 % (47.0-73.0); NUCLEATED RED BLOOD CELL 0.2 % (0.0-0.0); PLATELET COUNT AUTOMATED 329 10*3/uL (130-400); RED BLOOD COUNT 4.76 10*6/uL (4.10-5.10); RED CELL DISTRI WIDTH 20.9 % (0-14.5); WHITE BLOOD COUNT 10.7 10*3/uL (4.8-10.8)
[2018-07-17 07:42] LABS: ALBUMIN 3.1 gm/dl (3.1-4.5); CREATININE 1.17 mg/dL (0.55-1.02); PHOSPHOROUS 2.3 mg/dL (2.5-4.9); POTASSIUM 2.6 mmol/L (3.5-5.1); TOTAL PROTEIN 6.2 gm/dL (6.4-8.2)
[2018-07-17 08:00] VITALS: BP 117/65
--- NOTE | 2018-07-17 08:26 | NUR ---
MOM given per patient request for c/o constipation.
--- NOTE | 2018-07-17 08:50 | NUR ---
Explained to patient that physician ordered IV magnesium and I had to start another IV site because I could not run the two medications together. She refused and said "do it later today."
--- NOTE | 2018-07-17 09:05 | NUR ---
MOM given for patient c/o constipation.
[2018-07-17 12:00] VITALS: BP 103/82
--- NOTE | 2018-07-17 12:00 | NUR ---
CLAUDIA hosjerrell placed on patient. Patient educated that they are to be removed at HS and put on in the morning. Patient c/o pain while I was putting them on but stated her feet/legs felt better once they were on.
[2018-07-17 16:00] VITALS: BP 105/76
--- NOTE | 2018-07-17 17:10 | NUR ---
[place] given for patient c/o pain in her feet. Will monitor.
--- NOTE | 2018-07-17 17:50 | NUR ---
Fly effective. Patient satisfied.
[2018-07-17 20:00] VITALS: BP 92/57
--- NOTE | 2018-07-17 22:06 | NUR ---
PATIENT MEDICATED WITH NORCO FOR COMPLAINTS OF GENERALIZED PAIN AND ATIVAN FOR COMPLAINTS OF ANXIETY. WILL MONITOR FOR EFFECTIVENESS. CALL LIGHT IN REACH.
[2018-07-18] VITALS: BP 114/70
[2018-07-18 06:43] LABS: CREATININE 1.23 mg/dL (0.55-1.02); POTASSIUM 2.8 mmol/L (3.5-5.1)
--- NOTE | 2018-07-18 07:40 | NUR ---
Contacted Dr. Sinclair regarding patients abnormal lab values. See new orders.
[2018-07-18 08:00] VITALS: BP 134/70
--- NOTE | 2018-07-18 08:00 | NUR ---
VITALS STABLE, A&OX3, YECENIA, HEART SOUNDS NORMAL, LUNG SOUNDS DIMINISHED THROUGHOUT, +1 PITTING EDEMA IN BOTH LEGS, SKIN INTACT,RED TO LOWER EXTRIMITIES AND WARM TO TOUCH, POSITIVE PEDAL PULSE, EQUAL CLINICAL LABORATORY MANAGER, CAP REFILL <3 SECONDS, BOWEL SOUNDS X4, ABDOMEN SOFT NON TENDER AND NON DISTENDED. KANA BURRIS SPMORGANCC
--- NOTE | 2018-07-18 08:07 | NUR ---
Reviewed new orders with instructor and student nurse.
[2018-07-18 09:18] LABS: BASO # 0.1 10*3/uL (0.0-0.1); BASO % 0.6 % (0.0-1.0); EOS # 0.3 10*3/uL (0.0-0.4); EOS % 2.9 % (1.0-4.0); HEMOGLOBIN 9.6 g/dl (12.0-16.0); LYMPH # 3.3 10*3/uL (1.3-4.4); LYMPH % 30.4 % (27.0-41.0); MEAN CELL VOLUME 68.4 fl (81.0-99.0); MEAN CORPUSCULAR HGB 18.8 pg (27.0-31.0); MEAN CORPUSCULAR HGB CONC 27.4 g/dl (33.0-37.0); MEAN PLATELET VOLUME 9.6 fl (9.6-12.3); MONO # 1.3 10*3/uL (0.1-1.0); MONO % 12.3 % (3.0-9.0); NEUT # 5.7 10*3/uL (2.3-7.9); NEUT % 52.5 % (47.0-73.0); NUCLEATED RED BLOOD CELL 0.4 % (0.0-0.0); PLATELET COUNT AUTOMATED 339 10*3/uL (130-400); RED BLOOD COUNT 5.12 10*6/uL (4.10-5.10); RED CELL DISTRI WIDTH 21.5 % (0-14.5); WHITE BLOOD COUNT 10.8 10*3/uL (4.8-10.8)
--- NOTE | 2018-07-18 09:30 | NUR ---
OT NOTE Pt was seen this A.M. 1:1 for 16 minute OT session. Upon arrival pt was supine in bed, pt identified by name and . Pt had no complaints at this time. Pt transferred supine to sit EOB with SBA and use of bed rails. While sitting EOB attempted to have pt dunia socks using the sock aid and pt stated she could not remember the proper sequence to complete the task. Pt attempted to dunia socks without AE and was having difficulty due to BLE edema. Pt attempted to dunia sock using sock aid and melt room operator and she required modA to complete due to poor sequencing and becoming frustrated. Educated pt on personal adaptive techniques of bringing her leg over the knee and she was able to complete with SBA. Throughout educated pt on breathing techniques to avoid SOB, pt had fair carry over requiring verbal prompts to carry through. Pt was left sitting upright on the EOB with bed alarm activated for safety, call light in hand, and tray table in place. Continue with rec D/C plan to SNF. BEVERLEY Pulliam/Mick
--- NOTE | 2018-07-18 09:45 | NUR ---
Chirag hose reapplied. Patients feet are noticabley less swollen today. Patient noticed the difference.
--- NOTE | 2018-07-18 10:00 | NUR ---
PATIENT REQUESTED HER ATIVAN FOR HER NERVES. 1 ATIVAN PO WAS GIVEN PATIENT REQUESTED SOMTHING FOR PAIN FOR POST THERAPY SESSION. 1 NORCO WAS GIVEN PO. WILL CONTINUE TO ASSESS PATIENT. KANA BURRIS [facility]
--- NOTE | 2018-07-18 10:35 | NUR ---
REEVALUATED PATIENT FOR EFFECTIVENESS OF ANXIETY MEDICATION AND PAIN MEDICATION THAT WAS GIVEN. PATIENT STATED THE ANXIETY MEDICATION DID HELP AND HER PAIN SCALE WAS NOW AT A 5 ON A SCALE 0-10. PATIENT RESTING IN BED. KANA CANELA
--- NOTE | 2018-07-18 10:42 | NUR ---
PHYSICAL THERAPY Patient seen this am 1:1 for therapy visit and was sitting up on EOB following patient care. Patient reports no recent bouts of dizziness and feeling a little better since having fluid drained. Patient still presents with a little B LE mild edema and IV treatment. Patient transfers sit to stand CGA, ambulating RESIDENTIAL MENTAL HEALTH WORKER/CGA, 60'x 1, 40' x 1 demonstrating decreased stride, increased fatigue and bouts of unsteady gait pattern secondary to both impulsvie behaviour, with decreased focus on task. Patient remains increased risk of falls and would benefit from SNF to improve standing balance and improved standing activity tolerance. Patient returned to EOB sit and remained with student nurse for patient care. Will continue per POC as tolerated, total treatment time 16 minutes. Qamar Sheriff, CORPORATE STATISTICAL FINANCIAL ANALYST
--- NOTE | 2018-07-18 11:31 | NUR ---
Patient updated clincals faxed to [facility] for review; waiting for patient to be ready for D/C in order to restart precert. Hospitalists office notified.
[2018-07-18 12:00] VITALS: BP 134/72
--- NOTE | 2018-07-18 12:52 | NUR ---
Faxed required clinicals to [facility] and asked guilherme to start precert. Waiting for auth.
--- NOTE | 2018-07-18 13:45 | NUR ---
PHYSICAL THERAPY Patient was sound asleep this pm when approached for therapy visit and not seen this afternoon. Will continue per POC as tolerated. Qamar Sheriff, NEON SIGN SERVICER
[2018-07-18 16:00] VITALS: BP 138/76
[2018-07-18 20:00] VITALS: BP 90/65
--- NOTE | 2018-07-18 20:00 | NUR ---
24 HR chart check completed.
--- NOTE | 2018-07-18 21:00 | NUR ---
SITTING AT BEDSIDE. NO ACUTE DISTRESS NOTED. RESPIRATIONS EASY. LUNGS DIMINISHED, CLEAR. PULSE OX 97% RA. +2 BLE EDEMA; TEDS OFF AND LAYING AT BEDSIDE. PATIENT STATES "I JUST TOOK THEM OFF." REINFORCED IMPORTANCE OF WEARING TEDS, PATIENT VOICED UNDERSTANDING. CALL LIGHT WITHIN REACH. NO VOICED COMPLAINTS
--- NOTE | 2018-07-18 22:03 | NUR ---
REQUESTED AND RECEIVED ATIVAN TO ASSIST WITH ANXIETY AND NORCO PER PRN ORDER FOR COMPLAINTS OF BILATERAL FEET PAIN RATING A 6. CALL LIGHT WITHIN REACH. WILL MONITOR FOR EFFECTIVENESS
--- NOTE | 2018-07-18 22:49 | NUR ---
IV started left hand with #22 angiocath after 1 attempt The IV site was prepped with Chloraprep. Heparin lock attached. Sterile dressing applied. Patient tolerated precedure well. Procedure performed according to [facility] policy & procedure. RADHA MA
[2018-07-19] VITALS: BP 100/61
--- NOTE | 2018-07-19 | NUR ---
REMAINS AWAKE BUT DROWSY. RESPIRATIONS EASY. VSS. CALL LIGHT WITHIN REACH. NO VOICED COMPLAINTS
--- NOTE | 2018-07-19 04:15 | NUR ---
RETURNED TO NURSES STATION TO SEE PATIENT ANGRILY LEAVING STATION TO RETURN TO ROOM. PER STAFF AT STATION, PATIENT UPSET OVER INCIDENCE WITH PA. FOLLOWED PATIENT TO ROOM TO DISCUSS ISSUE. PATIENT CLAIMS SHE ASKED DARIN DELACRUZ (WHOSE NAME SHE DID NOT KNOW AND DESCRIBED IN RACIAL TERMS) TO ASSIST IN BATHROOM AND TO APPLY LOTION TO FEET AND PA REPLIED "I'LL HAVE TO CHECK." PATIENT CLAIMS PA NEVER RETURNED SO SHE AMBULATED TO NURSES STATION AND BEGAN SPEAKING LOUDLY TO GENERAL SERVICE OFFICER (DAYRON) AND MALE NURSE (SAVANAH Gonsalves WHOSE NAME SHE ALSO DID NOT KNOW AND MADE REFERENCE TO SEXUAL ORIENTATION). PATIENT UPSET AND AGITATED, THREATENING TO "HAVE ALL THEIR JOBS." ATTEMPTS TO CALM PATIENT MADE, ATIVAN PROVIDED PER REQUEST PER PRN ORDER. PATIENT REQUESTING TO SPEAK TO PERSONNEL DIRECTOR, GLASS CHECKER PAGED WHO WILL COME TO FLOOR TO SPEAK WITH PATIENT
--- NOTE | 2018-07-19 04:30 | NUR ---
DRUM TESTER PRESENT ON FLOOR TO DISCUSS ISSUE WITH PATIENT
--- NOTE | 2018-07-19 07:57 | NUR ---
VITALS STABLE, A&OX3, NO PAIN AT TIME OF ASSESSMENT, HEART SOUNDS NORMAL, LUNG SOUNDS CLEAR BILATERAL, CAP REFILL <3 SECONDS, +2 PITTING EDEMA TO LOWER EXTREMITIES, WARMTH AND REDNESSES TO LOWER EXTREMITIES, BOWEL SOUNDS ACTIVE X4, SOFT, NONDISTENDED, NONTENDER, PATIENT COOPERATIVE DURING ASSESSMENT. KANA BURRIS [facility]
[2018-07-19 08:00] VITALS: BP 118/62
[2018-07-19 08:00] LABS: CREATININE 1.39 mg/dL (0.55-1.02); POTASSIUM 2.8 mmol/L (3.5-5.1)
--- NOTE | 2018-07-19 08:13 | NUR ---
Notified Dr. Sinclair of critical labs. No new orders at this time.
[2018-07-19 08:21] LABS: ALBUMIN 3.6 gm/dl (3.1-4.5); TOTAL PROTEIN 6.7 gm/dL (6.4-8.2)
--- NOTE | 2018-07-19 09:51 | NUR ---
PATIENT COMPLAINT OF CONSTIPATION. 1 DULCOLAX PO GIVEN, WILL CONTINUE TO MONITOR. KANA BURRIS SPMORGANCC
--- NOTE | 2018-07-19 11:20 | NUR ---
PHYSICAL THERAPY Patient seen this am 1;1 for therapy visit and was supine in bed upon therapist arrival. Patient reports feeling very anxious and stated she really wanted to get out of the hospital and on to SNF. She also was anxious to see her Sister who is coming up to visit from out of state later this week. Patient transfers supine to sit EOB Min A and sit to stand CGA. Patient ambulates PARTY COORDINATOR/CGA, 45'x 1, 25'x 1, demonstrating unsteady gait pattern with LOB x 2 secondary to decreased focus on task. Patient instructed to maintain wider MACY with head up and visual fixation technique to promote smoother guerita / improved standing balance. Patient returned to supine in bed and remained with call light, tray table, cell phone and bed alarm activated for safety. Will continue per POC as tolerated, total treatment time 16 minutes. Qamar Sheriff, EXTRUDING DEPARTMENT SUPERVISOR
--- NOTE | 2018-07-19 11:34 | NUR ---
WAITING FOR AUTH FOR PT TO GO TO [facility]. WILL CONTINUE TO FOLLOW.
--- NOTE | 2018-07-19 11:35 | NUR ---
OT NOTE Pt was seen this A.M. 1:1 for 15 minute OT session. Upon arrival pt was supine in bed, pt identified by name and . Pt had no complaints at this time. Pt transferred supine to sit EOB with SBA. Pt then completed functional mobility around her room with Annie EVANS with multiple LOB due to narrow base of support requring modA to correct. Throughout pt required verbal prompts for pacing herself taking standing rest breaks to avoid SOB. Educated pt on breathing techniques throughout and pt had fair carry over however she would become "worked up" and forget to focus on breathing. Pt then transferred sit to supine with SBA where she was left with call light in hand, tray table in place, and bed alarm activated for safety. Continue with rec D/C plan to SNF. BEVERLEY Pulliam/Mick
[2018-07-19 12:00] VITALS: BP 110/70
--- NOTE | 2018-07-19 15:58 | NUR ---
PT HAS RECIEV AUTH FOR [facility], CAN GO WHEN MEDICALLY STABLE. DR VU INFORMED.
[2018-07-19 16:00] VITALS: BP 101/64
[2018-07-19] MEDS ORDERED: METOLAZONE5 MG PO (16:05)
[2018-07-19] MEDS ORDERED: VITAMIN D5000 UNI1 PO (16:05)
[2018-07-19] MEDS ORDERED: LORAZEPAM2 MG PO (16:05)
[2018-07-19] MEDS ORDERED: CARVEDILOL3.125 MG PO (16:05)
--- NOTE | 2018-07-19 16:45 | NUR ---
Nurse to nurse report called [facility].
--- NOTE | 2018-07-20 07:43 | NUR ---
PHYSICAL THERAPY CO-SIGN I approve of the Phyical Therapy notes written above. YAMILETH WEBBER PT
--- NOTE | 2018-07-20 15:54 | NUR ---
OCCUPATIONAL THERAPY CO-SIGN I approve of the Occupational Therapy notes written above. THOR WILSON OTR/Mick
[2018-07-21] MEDS ORDERED: ATIVAN2 M1 PO (09:40)
[2018-07-27] MEDS ORDERED: CARVEDILOL6.25 MG PO (10:13)
[2018-07-27] MEDS ORDERED: KLOR-CON M2020 ME1 PO (11:42)
[2018-07-27] MEDS ORDERED: TORSEMIDE100 MG PO (11:42)
== END 2018-07-19 16:45 | disposition other institution (70) | DRG 291 ==
LOC: ED 10:53 → 5E 13:59 → EDHOLD 13:59 → 5E 14:14
PROVIDERS: Emergency Medicine; Family Medicine; Internal Medicine; Internal Medicine Cardiovascular Disease; Student in an Organized Health Care Education/Training Program; ADMIT Family Medicine
DX: I13.0 Hypertensive heart and chronic kidney disease with heart failure and stage 1 through stage 4 chronic kidney disease, or unspecified chronic kidney disease (principal); I50.43 Acute on chronic combined systolic (congestive) and diastolic (congestive) heart failure; E87.1 Hypo-osmolality and hyponatremia; E44.0 Moderate protein-calorie malnutrition; D50.9 Iron deficiency anemia, unspecified; R53.1 Weakness; N18.3 Chronic kidney disease, stage 3 (moderate); E11.65 Type 2 diabetes mellitus with hyperglycemia; R26.2 Difficulty in walking, not elsewhere classified; E66.01 Morbid (severe) obesity due to excess calories; R79.89 Other specified abnormal findings of blood chemistry; R94.31 Abnormal electrocardiogram [ECG] [EKG]; D69.6 Thrombocytopenia, unspecified; I95.9 Hypotension, unspecified; I42.9 Cardiomyopathy, unspecified; E87.8 Other disorders of electrolyte and fluid balance, not elsewhere classified; E11.22 Type 2 diabetes mellitus with diabetic chronic kidney disease; Z96.643 Presence of artificial hip joint, bilateral; F41.9 Anxiety disorder, unspecified; I07.1 Rheumatic tricuspid insufficiency; F32.9 Major depressive disorder, single episode, unspecified; E55.9 Vitamin D deficiency, unspecified; E78.5 Hyperlipidemia, unspecified; K57.90 Diverticulosis of intestine, part unspecified, without perforation or abscess without bleeding; E66.9 Obesity, unspecified; Z87.440 Personal history of urinary (tract) infections; Z90.710 Acquired absence of both cervix and uterus; Z82.49 Family history of ischemic heart disease and other diseases of the circulatory system; Z80.41 Family history of malignant neoplasm of ovary; Z80.42 Family history of malignant neoplasm of prostate; Z95.0 Presence of cardiac pacemaker; Z79.899 Other long term (current) drug therapy; Z68.39 Body mass index [BMI] 39.0-39.9, adult

== ENCOUNTER 2018-08-01 11:51 | Inpatient (IN) | payer OTHER ==
[~2018-08-01] VITALS: Ht 165.1 cm; Wt 110.0 kg
[2018-08-01] VITALS (43 sets, daily range): BP systolic 62–119; BP diastolic 00–87
--- NOTE | ~2018-08-01 | PR ---
[place], [place] PROGRESS NOTE NAME: FAISAL PICKENS UNIT #: [id number] ROOM: [facility] DOCTOR: BIJU SANTIZO MD BIRTHDATE: [birth year] DOS: 08/02/[address] Ge. SUBJECTIVE: This patient was admitted to the hospital a couple days ago. Her blood pressure seemed to be on the low side and was on Levophed, which is being tapered off and dose has been cut in half and her blood pressure is a little better than while on a higher dose of the inotrope. She feels no chest pain, no palpitations. She is short of breath. PHYSICAL EXAMINATION: GENERAL: The patient is alert, oriented. She has some labored breathing and is tachypneic. VITAL SIGNS: Pulse is regular at 90 with occasional irregularity. Blood pressure 97/70. NECK: JVP appears to be elevated. LUNGS: Breath sounds are fairly decent. No adventitious sounds are present. EXTREMITIES: She has 2+ edema in the lower extremities. Mild erythema of the pretibial area. Monitor shows normal sinus rhythm with unifocal PVCs, no ventricular tachycardia. Hemoglobin is 9.7 g/dL. BUN 27, creatinine 1.87; both of them were better than yesterday. IMPRESSION: 1. The patient has severe cardiomyopathy that appeared to be adequately compensated. 2. Chronic kidney disease, fairly stable. 3. Moderate anemia. I reviewed today's chest x-ray and it shows moderate cardiomegaly, but no pulmonary congestion or effusion. IMPRESSION: This patient has severe cardiomyopathy with low blood pressure, which is expected. Levophed is being tapered off. If her blood pressure remains reasonable, i.e., over 85 systolic, she can be transferred out of the unit. Furosemide should be started and beta misael can be initiated tomorrow if there is a concern with regard to low blood pressure. I discussed this with the resident. [place], [place] PROGRESS NOTE NAME: FAISAL PICKENS UNIT #: [id number] ROOM: [facility] DOCTOR: BIJU SANTIZO MD BIRTHDATE: [birth year] BIJU SANTIZO MD CM:PNPAT 1113 2 BIJU SANTIZO MD 08/03/184 interface
--- NOTE | ~2018-08-01 | CON ---
[place], [place] REPORT OF CONSULTATION NAME: [facility]ICKENS [id number] UNIT #: [id number] ROOM: [facility] DOCTOR: BIJU SANTIZO MD BIRTHDATE: [birth year] DOS: 08/01/2018 HISTORY OF PRESENT ILLNESS: This is a 63-year-old -[place] woman with a history of severe nonischemic cardiomyopathy with an LV ejection fraction of 15% or so. She has chronic systolic heart failure with acute exacerbation a couple of weeks ago. She was diuresed aggressively and last lot of water. Breathing got better; she became more ambulatory. She developed severe hypokalemia with a potassium of about 2.2 and magnesium 1 and this resulted in V-tach and VFib, which AICD took care of with a shock. She has had chronic edema despite aggressive diuresis. She has chronic kidney disease stage 3, type 2 diabetes mellitus, essential hypertension, hyperlipidemia, chronic anemia, morbid obesity and depression. She has had bilateral breast reduction surgery, bilateral hip replacement, hysterectomy, AICD implantation, and tonsillectomy. She does not smoke nor does she drink alcoholic beverages. This patient was discharged home just a few days ago and came back because of abnormal labs, namely potassium was 6.9. She was admitted to the ICU and had been given IV fluids and also medicine to reduce potassium level. She did not have any palpitations or any loss of consciousness, but felt weaker than usual. She has chronic shortness of breath and fatigue. MEDICATIONS: Her skilled nursing medications included amiodarone 200 mg daily, atorvastatin 40 mg daily, carvedilol 6.25 b.i.d., cholecalciferol 5000 units daily, glimepiride 4 mg daily, hydroxyzine (Vistaril) 50 mg t.i.d. p.r.n., lisinopril 5 daily, lorazepam 2 mg t.i.d., mag oxide 400 b.i.d., metformin 500 mg b.i.d., Remeron 30 mg at night, omeprazole 20 daily, potassium chloride 40 mEq b.i.d., spironolactone 25 mg daily and torsemide 50 mg daily. PHYSICAL EXAMINATION: GENERAL: This is a patient who is very pleasant, alert. She is somewhat exhausted looking and seems lethargic. Her face is puffy including the eyelids. She is not anemic and temperature is normal. VITAL SIGNS: Pulse is 88 and regular, blood pressure was 85/55, 70/46 and 107/82. NECK: JVP appears to be elevated, difficult to assess; however. The left-sided external jugular vein seems rather prominent. CARDIOVASCULAR: Cardiac auscultation, no murmurs. There is no parasternal heave. There is 2+ edema below the knees. RESPIRATORY: Breath sounds are moderately diminished with very few adventitious sounds. ABDOMEN: Rather large and supple with some dullness in the lateral aspects; there is the possibility of ascites. An ECG demonstrated normal sinus rhythm at 60 beats per minute and low voltage with an intraventricular conduction defect and marked left axis deviation. I reviewed a chest x-ray; it shows moderate cardiomegaly with prominent right side and no pulmonary congestion or edema. There is no pericardial effusion. A single chamber AICD is present. [place], [place] REPORT OF CONSULTATION NAME: FAISAL PICKENS UNIT #: [id number] ROOM: [facility] DOCTOR: BIJU SANTIZO MD BIRTHDATE: [birth year] LABORATORY DATA: Potassium was 6.9 earlier today, it is 5.7 now; BUN was 30, is 29 now; creatinine 2.08. IMPRESSION: 1. This patient has severe dilated/nonischemic cardiomyopathy. 2. Chronic systolic heart failure with some degree of decompensation. 3. Severe hyperkalemia, which is improving. 4. AICD was interrogated a week ago and was functioning normally. 5. Chronic kidney disease at baseline. 6. Anemia. RECOMMENDATIONS: This patient was sent to the skilled nursing with a large dose of potassium supplement. I think that has been discontinued and once the potassium returns to normal, spironolactone should be re-added and she should continue with her torsemide 50 mg daily and if potassium level does drop, then add an oral potassium supplement cautiously. I thank you for this consult. BIJU SANTIZO MD CM:CONSTR:REPORT OF CONSULTATION [id number] 08/02/18 0212 interface
--- NOTE | ~2018-08-01 | PR ---
[place], [place] PROGRESS NOTE NAME: [facility]AL [facility]ICKENS [id number] UNIT #: [id number] ROOM: 528 DOCTOR: BIJU SANTIZO MD BIRTHDATE: [birth year] DOS: 08/08/2018 SUBJECTIVE: She feels quite well. She has walked around in the room with some shortness of breath, but her breathing has improved remarkably since admission and she has diuresed exceedingly as well. She has no chest pain or palpitations, only shortness of breath. There is no soreness of the legs either. She is eating well. Mood is good. PHYSICAL EXAMINATION: GENERAL: The patient is alert, oriented. Her complexion is fine. VITAL SIGNS: Pulse is 76 and regular, blood pressure 102/65. NECK: JVP is normal. LUNGS: Breath sounds are diminished with very few adventitious sounds present. EXTREMITIES: There is only 1+ pretibial edema, which was quite severe at the time of admission. Weight is 110 kilos, which is trending up. LABORATORY DATA: BUN is 19, creatinine 1.47. IMPRESSION: 1. This patient has severe cardiomyopathy with ejection fraction about 15% with dilated LV cavity. 2. Acute on chronic systolic heart failure, now is adequately compensated. 3. Chronic kidney disease, stable. RECOMMENDATIONS: If she continues to gain weight, torsemide should be increased to 70 mg daily, i.e. 50 mg and 20 mg tablets daily. BIJU SANTIZO MD CM:PNTRANS [id number] BIJU SANTIZO MD 08/09/18 0436 interface
--- NOTE | ~2018-08-01 | EKG ---
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: Marianna Aleman : 1955 Requested By: KIAH RIDLEY Order Number: [id number] Reading MD: Mickey Earl MD Measurements Intervals [place] Rate: 97 P: 68 [place]: 188 QRS: 265 QRSD: 101 T: 87 QT: 356 QTc: 452 Interpretive Statements Sinus tachycardia Ventricular trigeminy Consider inferior infarct Anterior infarct, old Nonspecific T abnormalities, lateral leads Compared to ECG 08/01/2018 12:19:31 Ventricular premature complex(es) now present T-wave abnormality now present Intraventricular conduction delay no longer present Myocardial infarct finding still present Myocardial infarct finding still present Electronically Signed On 08-05-2018 16:30:26 PST by Mickey Earl MD CM:EKGRPT:ELECTROCARDIOGRAM REPORT [id number] KIAH DANIEL DRAFT REPORT KIAH RIDLEY
--- NOTE | ~2018-08-01 | PR ---
[place], [place] PROGRESS NOTE NAME[facility]ICK[id number] UNIT #: [id number] ROOM: 528 DOCTOR: BIJU SANTIZO MD BIRTHDATE: [birth year] DOS: 08/05/2018 SUBJECTIVE: She is breathing much better. She has no chest pain or palpitations. Legs are red and somewhat swollen. PHYSICAL EXAMINATION: GENERAL: The patient is very pleasant, alert. She is very obese. Complexion is fine. She is mildly tachypneic. VITAL SIGNS: Pulse is regular at 60 beats per minute, blood pressure 121/97. NECK: JVP is normal. LUNGS: Breath sounds are diminished with some crackles on the left side. EXTREMITIES: 1 to 2+ edema in the lower extremities with erythema on both lower part of the legs. BUN and creatinine have improved since yesterday. She is currently on torsemide 50 mg daily; I think this dose should be continued. BIJU SANTIZO MD CM:PNTRANS 2 BIJU SANTIZO MD 08/06/18 0304 interface
--- NOTE | ~2018-08-01 | PR ---
[place], [place] PROGRESS NOTE NAME: FAISAL PICKENS [facility] #: [id number] UNIT #: [id number] ROOM: 528 DOCTOR: BIJU SANTIZO MD BIRTHDATE: [birth year] DOS: 08/04/2018 SUBJECTIVE: She feels well. She does not have shortness of breath as she had a couple of days earlier. No chest pain or palpitation. She has a dry cough that has been bothering her quite a bit. There is no fever or chills. Her appetite is fine. She was found to have severe hypokalemia and is getting IV potassium supplement and also IV magnesium because of hypomagnesemia. PHYSICAL EXAMINATION: GENERAL: This is a patient who is alert, oriented, sitting in her bed. Her complexion is fine. VITAL SIGNS: Pulse is about 96 beats per minute, blood pressure 113/66. Systolic blood pressure has remained over 90 for the most part. NECK: JVP is about 15 cm of water. CARDIAC: Auscultation reveals no murmurs. LUNGS: She has fairly clear lungs bilaterally. EXTREMITIES: Edema in the lower extremities is still 2+. Hemoglobin is 8.9 g/dL, which is at baseline. Potassium is 2.9, creatinine 1.31 and was 1.62 yesterday and BUN was 21 yesterday. Fluid balance has been -3.7 liters for the last 2 days. IMPRESSION: 1. Severe cardiomyopathy. 2. Acute on chronic systolic heart failure. 3. This patient had hypovolemic shock on admission and was given IV fluids and I think that probably resulted in cardiac decompensation. 4. Severe hypomagnesemia and hypokalemia. 5. Acute on chronic renal insufficiency that is improving. RECOMMENDATIONS: 1. I discussed this with Dr. Paula. Patient should be restarted on lisinopril 2.5 mg b.i.d., torsemide 50 mg should be continued as she is diuresing very well. 2. Beta misael should be continued, dose may have to be increased if the heart rate is not adequately controlled. 3. PA chest x-ray should be done. I believe this patient should stay in the hospital for another couple of days while adjusting her medications and also to normalize potassium and magnesium (last week, she had V-tach and V-fib as a result of severe hypomagnesemia and hypokalemia). [place], [place] PROGRESS NOTE NAME: FAISAL PICKENS UNIT #: [id number] ROOM: 528 DOCTOR: BIJU SANTIZO MD BIRTHDATE: [birth year] BIJU SANTIZO MD CM:PNTRANS 1108 9 BIJU SANTIZO MD 08/05/18130 interface
--- NOTE | ~2018-08-01 | PR ---
[place], [place] PROGRESS NOTE NAME[facility]ICKENS [id number] UNIT #: [id number] ROOM: 528 DOCTOR: BIJU SANTIZO MD BIRTHDATE: [birth year] DOS: 08/06/2018 SUBJECTIVE: Her breathing is still satisfactory. She remains short of breath when she moves a little bit in the room. No chest pain, no palpitation. She does not have any cough. Still has swelling in the legs. Her fluid balance was less than 900 for the last 2 days. OBJECTIVE: NECK: JVP is normal. AJR appeared delicate negative. LUNGS: Breath sounds are diminished, but very few adventitious sounds. EXTREMITIES: A 1 to 2+ edema in the lower extremity persist. LABORATORY DATA: Hemoglobin is 8.5 g/dL. BUN 14, creatinine 1.39. IMPRESSION: 1. This patient has severe cardiomyopathy. 2. Acute on chronic systolic heart failure has improved markedly so much so that she can ambulate now. 3. Moderate anemia. 4. Chronic kidney disease. Renal function has improved. RECOMMENDATIONS: Continue with the same dose of diuretic. I believe she is on torsemide 50 mg daily. BIJU SANTIZO MD CM:PNTRANS [id number] BIJU SANTIZO MD 08/18/18 0732 interface
--- NOTE | ~2018-08-01 | PR ---
[place], [place] PROGRESS NOTE [id number] UNIT #: [id number] ROOM: 528 DOCTOR: BIJU SANTIZO MD BIRTHDATE: [birth year] DOS: 08/07/2018 SUBJECTIVE: She feels well. She walked in the room and in the hallways. She had shortness of breath, but markedly improved from the time she was admitted to the hospital. She has diuresed well, but her weight has gone up by about a kilo from a couple of days ago. PHYSICAL EXAMINATION: GENERAL: The patient is alert, pleasant. Her complexion is fine. VITAL SIGNS: Pulse is 86, blood pressure 199/72. NECK: Normal JVP. AJR is negative. LUNGS: Breath sounds are fairly decent with hardly any adventitious sounds. EXTREMITIES: Mild edema of the lower extremity. IMPRESSION: 1. This patient has severe cardiomyopathy. 2. Acute on chronic systolic heart failure is now well compensated. 3. AICD has not discharged. 4. Chronic kidney disease at baseline, in fact has improved significantly since the diuresis was initiated. RECOMMENDATIONS: The patient will be discharged on torsemide 50 mg daily and later on dose can be adjusted depending on her volume status. BIJU SANTIZO MD CM:PNTRANS [phone] BIJU SANTIZO MD 08/08/18 0823 interface
--- NOTE | ~2018-08-01 | EKG ---
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: : 1955 Requested By: MARIANGEL GALLEGOS Order Number: [id number] Reading MD: Mickey Earl MD Measurements Intervals [place] Rate: 60 P: NC: QRS: -65 QRSD: 133 T: 78 QT: 456 QTc: 456 Interpretive Statements Sinus rhyrhm Nonspecific IVCD with LAD LAHB Extensive anterior infarct, old Compared to ECG 07/21/2018 03:14:58 Sinus tachycardia no longer present Ventricular premature complex(es) no longer present Myocardial infarct finding still present Electronically Signed On 08-02-2018 15:04:12 PST by Mickey Earl MD CM:EKGRPT:ELECTROCARDIOGRAM REPORT [id number] MARIANGEL DANIEL DRAFT REPORT MARIANGEL GALLEGOS M.D.
[~2018-08-01 11:51] MED LIST changes: +AMIODARONE HYD200 MG PO; +BUMETANIDE2 MG PO; +CARVEDILOL3.125 MG PO; +COREG12.5 M1 PO; +KLOR-CON 1010 ME1 PO; +KLOR-CON M2020 ME1 PO; +LIPITOR40 MG PO; +LORAZEPAM2 MG PO; +MAGNESIUM OXID400 MG PO; +METOLAZONE5 MG PO; +PRESERVISION PO; +TORSEMIDE100 MG PO; +VITAMIN D5000 UNI1 PO
[2018-08-01 12:30] LABS: BASO % 0.3 % (0.0-1.0); EOS # 0.1 10*3/uL (0.0-0.4); EOS % 0.7 % (1.0-4.0); HEMATOCRIT 32.3 % (37.0-47.0); HEMOGLOBIN 8.9 g/dl (12.0-16.0); LYMPH # 1.8 10*3/uL (1.3-4.4); LYMPH % 17.6 % (27.0-41.0); MEAN CELL VOLUME 73.1 fl (81.0-99.0); MEAN CORPUSCULAR HGB 20.1 pg (27.0-31.0); MEAN CORPUSCULAR HGB CONC 27.6 g/dl (33.0-37.0); MEAN PLATELET VOLUME 9.6 fl (9.6-12.3); MONO # 1.1 10*3/uL (0.1-1.0); MONO % 11.4 % (3.0-9.0); NEUT # 6.9 10*3/uL (2.3-7.9); NUCLEATED RED BLOOD CELL 0.1 10*3/uL (0.0-0.0); NUCLEATED RED BLOOD CELL 0.6 % (0.0-0.0); PLATELET COUNT AUTOMATED 280 10*3/uL (130-400); RED BLOOD COUNT 4.42 10*6/uL (4.10-5.10); RED CELL DISTRI WIDTH 26.5 % (0-14.5)
[2018-08-01 12:52] LABS: CREATININE 2.32 mg/dL (0.55-1.02); TOTAL PROTEIN 6.3 gm/dL (6.4-8.2)
[2018-08-01 12:54] LABS: POTASSIUM 6.9 mmol/L (3.5-5.1)
[2018-08-01 13:09] LABS: BILIRUBIN NEGATIVE (NEGATIVE); BLOOD NEGATIVE (NEGATIVE); CLARITY CLEAR (CLEAR); COLOR YELLOW (YELLOW); GLUCOSE NEGATIVE (NEGATIVE); KETONE NEGATIVE (NEGATIVE); LEUKO ESTERASE NEGATIVE (NEGATIVE); NITRITE NEGATIVE (NEGATIVE); SPECIFIC GRAVITY <= 1.005 (1.005-1.030); UROBILINOGEN 0.2 E.U./dl (0.2-1.0)
[2018-08-01 13:20] LABS: BACTERIA TRACE; MUCOUS 1+; RBC 0-2 rbc/hpf (0-2)
[2018-08-01] MEDS ORDERED: Motrin,Rufen800 MG PO (13:47)
--- NOTE | 2018-08-01 14:30 | NUR ---
A 63, admitted to ICCU, under the services of STEVEN Urban DO with a diagnosis of HYPOTENSION. Chief complaint is WEAK. Patient arrived via ambulance from ER. Monitor applied. Initial assessment completed. Vital signs taken and recorded. STEVEN URBAN DO notified of admission to the unit. Orders received. See assessment for past medical history, medications and allergies. Patient and/or family oriented to unit. [facility] visitation policy reviewed. Clothing/patient valuable form completed. ELISA MORSE
[2018-08-01] MEDS ORDERED: GUAIASORB DM L118 ML PO (14:58)
[2018-08-01] MEDS ORDERED: MIRALAX POWDER17 G1 PO (14:59)
[2018-08-01] MEDS ORDERED: DULCOLAX STOOL100 M1 PO (14:59)
[2018-08-01] MEDS ORDERED: MILK OF MA400 MG/51 PO (15:00)
--- NOTE | 2018-08-01 15:00 | NUR ---
LEVOPHED INFUSING VIA #18 IN LEFT THUMB WTIH GOOD BLOOD RETURN AT PRESENT. DR RIDLEY & DR BECERRIL ROUNDED. DR RIDLEY MADE AWARE WHEN REPEAT LACTIC ACID RESULT WAS CALLED AND PER DR BECERRIL NO FURTHER FLUIDS. DR NAGY PLACED A #20 IN LEFT UPPER ARM
[2018-08-01] MEDS ORDERED: DULCOLAX10 M1 R (15:01)
[2018-08-01] MEDS ORDERED: MUCINEX ER600 MG PO (15:03)
[2018-08-01] MEDS ORDERED: TORSEMIDE100 MG PO (15:08)
[2018-08-01] MEDS ORDERED: POTASSIUM CHLO20 ME3 PO (15:12)
[2018-08-01] MEDS ORDERED: PRESERVISION A1 EAC1 PO (15:15)
[2018-08-01 15:16] LABS: CREATININE 2.08 mg/dL (0.55-1.02)
[2018-08-01 15:19] LABS: POTASSIUM 5.7 mmol/L (3.5-5.1)
--- NOTE | 2018-08-01 15:48 | NUR ---
PATIENT HAS TEARS TO ALL FINGERNAIL CUTICLES FROM BITING AND PULLING AT HANGNAILS. PTAITNE REFUSES TO ALLOW STAFF TO WASH OR APPLY ANTIBIOTIC OINTMENT. REFUSES TO ALLOW STAFF TO CLEANSE RAN FROM OLD SKIN TEAR THAT IS TENDER TO TOUCH WITH SCAB & REDNESS. CLOTHING LIST COMPLETED BY THIS NURSE & ELISA FAUSTIN PRESENT. PATIENT REFUSED TO ALLOW NURSE TO COUNT HER MONEY. REQUESTED NURSE TO GET HER CELL PHONE OUT & NURSE FOUND 5 PILL BOTTLES & MUCINEX IN ADDITION TO SEEING AN ENVELOPE WITH A LOT OF MONEY. NURSE DID NOT TOUCH IT BUT AGAIN REQUESTED TO LOCK IT UP AND THE PATIENT YELLED AT THE NURSE TO LEAVE IT ALONE I KNOW EXACTLY HOW MUCH IS THER AND IT WILL BE FINE. NURSE INFORMED HER THAT THE HOSPITAL CANNOT BE HELD ACCOUNTABLE FOR MONEY KEPT AT THE BEDSIDE. PATIENT SAID TO LEAVE IT ALONE. BOTH NURSES HEARD AND VERIFIED THAT MONEY WAS NOT TOUCHED.
--- NOTE | 2018-08-01 17:37 | NUR ---
DR SANTIZO HERE AND SPOKE WITH PATIENT & DR RIDLEY
--- NOTE | 2018-08-01 18:15 | NUR ---
PATIENT REFUSED FURTHER BLOOD DRAW AFTER A FEW ATTEMPTS WERE UNSUCCESSFUL. PATIENT FINALLY AGREED TO FINGER STICK FOR BASIC & MG. NIECE AT BEDSIDE. PURSE WAS TAKEN TO NURSING OFFICE LOCK BOX AFTER NIECE CONVINCE PATIENT TO LOCK UP HER MONEY - MONEY WAS COUNTED BY NURSING SUBSTATION MAINTENANCE TECHNICIAN & NURSE . PRESCRIPTIONS WERE TAKEN TO PHARMACY. PATIENT WANTS HER SISTER TO BE MPOA - WILLNOTIFY CASE MANAGEMENT
[2018-08-01 18:37] LABS: CREATININE 2.14 mg/dL (0.55-1.02)
--- NOTE | 2018-08-01 18:42 | NUR ---
SPOKE WITH DR NAGY ABOUT POTASSIUM LEVEL. WILL REPEAT THE TEST THIS MAY BE HEMOLYZED.
[2018-08-02] VITALS (88 sets, daily range): BP systolic 61–121; BP diastolic 31–83
[2018-08-02 00:33] LABS: CREATININE 1.96 mg/dL (0.55-1.02)
[2018-08-02 00:43] LABS: POTASSIUM 5.3 mmol/L (3.5-5.1)
--- NOTE | 2018-08-02 04:02 | NUR ---
DR RUBIO MADE AWARE SODIUM BICARB INFUSION AND IV SITES SITUATION.
[2018-08-02 05:26] LABS: ALBUMIN 2.9 gm/dl (3.1-4.5); CREATININE 1.87 mg/dL (0.55-1.02); PHOSPHOROUS 2.8 mg/dL (2.5-4.9); POTASSIUM 4.8 mmol/L (3.5-5.1)
[2018-08-02 05:31] LABS: THYROID STIM HORMONE (HS) 6.52 uIU/ml (0.358-4.75)
[2018-08-02 06:00] LABS: BASO % 0.4 % (0.0-1.0); EOS # 0.1 10*3/uL (0.0-0.4); EOS % 1.3 % (1.0-4.0); HEMATOCRIT 35.9 % (37.0-47.0); HEMOGLOBIN 9.7 g/dl (12.0-16.0); LYMPH # 3.1 10*3/uL (1.3-4.4); MEAN CELL VOLUME 72.8 fl (81.0-99.0); MEAN CORPUSCULAR HGB 19.7 pg (27.0-31.0); MEAN PLATELET VOLUME 9.5 fl (9.6-12.3); MONO # 1.2 10*3/uL (0.1-1.0); MONO % 11.2 % (3.0-9.0); NEUT # 5.8 10*3/uL (2.3-7.9); NEUT % 55.9 % (47.0-73.0); NUCLEATED RED BLOOD CELL 0.4 % (0.0-0.0); PLATELET COUNT AUTOMATED 292 10*3/uL (130-400); RED BLOOD COUNT 4.93 10*6/uL (4.10-5.10); RED CELL DISTRI WIDTH 26.9 % (0-14.5); WHITE BLOOD COUNT 10.3 10*3/uL (4.8-10.8)
[2018-08-02 06:18] LABS: INTERNATIONAL NORM RATIO 1.2 (2.0-3.5)
--- NOTE | 2018-08-02 06:50 | NUR ---
FAISAL PICKENS [id number] Please refer to the physician's history and physical for past medical history, comorbid conditions, and allergies. Diagnosis: HYPOTENSION HYPERKALEMIA Latrell Score: 20,LOW OR NO RISK WOUND DESCRIPTIONS: Location of the wound: Right ac Type of wound: skin tear Thickness: Partial Size: 0.5cm x 1.2cm x 0.1cm Tunneling: none Undermining: none Sinus Tract: none Presence of Exudate: Serosanguineous Amount: Light Color: Red Odor: None Periwound Skin Appearance: Erythema Wound edges: approximated Pain (associated with wound): none at time of assessment How does patient state this happened? pt state she had this last time Patient has several partial thickness areas noted to bilateral hands and fingers. Patient stated this is due to her anxiety and she picks and bites them. No drainage noted at time of assessment. Slight redness noted to surrounding areas. Surface the patient is resting on: Isoflex SKIN PREVENTION RECOMMENDATION: 1. Pressure redistribution support surface as appropriate 2. Elevate heels 3. Remove boots/TEDS every shift and reapply 4. Head of bed 30 degrees as tolerated 5. Assess nutrition and hydration 6. Manage moisture 7. Avoid the use of containment devices while in bed 8. Use absorptive products on surfaces limit layers of linens on bed 9. Turn and reposition every 1-2 hours in bed and every 1 hour in chair as tolerated 10. Weight shifts every 15 minutes while up in chair 11. Offloading with pillows or device to keep heels elevated off bed 12. Monitor skin at least every shift 13. Inspect under medical devices twice a day WOUND TREATMENT RECOMMENDATIONS: Continue current treatments per md.
--- NOTE | 2018-08-02 09:00 | NUR ---
Recycling Center Operator in to see patient. She is currently short term at [facility] and would like to return there upon discharge. digital sales planner following.
--- NOTE | 2018-08-02 09:50 | NUR ---
LEVOPHED GTT TITRATED DOWN TO 10MCG/MIN PER PHYSICIANS ORDER TO TITRATE DOWN IF SBP >85. SBP 104 AT THIS TIME.
--- NOTE | 2018-08-02 10:35 | NUR ---
LEVOPHED GTT DECREASED TO 8MCG/MIN FOR SBP OF 116.
--- NOTE | 2018-08-02 11:10 | NUR ---
PT MEDICATED WITH NORCO AND ATIVAN AT HER REQUEST FOR C/O LEG PAIN AND ANXIETY.
[2018-08-02 11:22] LABS: VITAMIN D, 25-HYDROXY 37.1 ng/mL (30-100)
--- NOTE | 2018-08-02 11:41 | NUR ---
LEVOPHED GTT DECREASED TO 6MCG/MIN DUE TO SBP OF 112 AT THIS TIME.
--- NOTE | 2018-08-02 12:52 | NUR ---
Assisted patient with completing Healthcare POA and Living Will paperwork. She named her sister, Janae, who was on speaker phone while the papers were being completed. Witnessed by 2 CMs. Original and 2 copies given to the patient. Copy placed on chart.
--- NOTE | 2018-08-02 14:26 | NUR ---
Patient comes in from [facility] where she is short term skilled. Patient will require PT/OT evals and a precert to return.
--- NOTE | 2018-08-02 16:14 | NUR ---
LEVOPHED GTT DECREASED TO 4MCG/MIN FOR BP OF 108/56.
--- NOTE | 2018-08-02 17:12 | NUR ---
PT MEDICATED WITH TYLENOL FOR C/O HEADACHE PAIN.
--- NOTE | 2018-08-02 17:40 | NUR ---
LEVOPHED GTT DECREASED TO 2MCG/MIN DUE TO BP OF 106/57
--- NOTE | 2018-08-02 20:30 | NUR ---
PATIENT MANUAL BLOOD PRESSURE TAKEN AT THIS TIME. MANUALLY 82/48. LEVOPHED TITRATED TO 5MCG. RN WILL CONTINUE TO MONITOR
--- NOTE | 2018-08-02 22:51 | NUR ---
KHAN CATHETER REPLACED AT THIS TIME D/T PATIENT C/O PAIN/DISCOMFORT AND ALSO LEAKING OF CATHETER. PATIENT TOLERATED WELL AND DENIES COMPLAINTS AT THIS TIME. RN WILL CONTINUE TO MONITOR
[2018-08-03] VITALS (68 sets, daily range): BP systolic 78–134; BP diastolic 38–88
--- NOTE | 2018-08-03 00:47 | NUR ---
PATIENT MEDICATED WITH ATIVAN,DILAUDID AND DITROPAN PER DRS ORDERS FOR C/O BLADDER SPASMS AND PAIN. SEE EMAR
--- NOTE | 2018-08-03 03:04 | NUR ---
PATIENT MEDICATED WITH VISTARIL FOR C/O ITCHING AT THIS TIME. RN WILL COTNINUE TO MONITOR
--- NOTE | 2018-08-03 03:49 | NUR ---
Recommend follow up for wound care in outpatient setting patient being discharge to another facility at this time
[2018-08-03 05:10] LABS: CREATININE 1.62 mg/dL (0.55-1.02); POTASSIUM 3.6 mmol/L (3.5-5.1)
[2018-08-03 06:01] LABS: BASO # 0.1 10*3/uL (0.0-0.1); BASO % 0.5 % (0.0-1.0); EOS # 0.1 10*3/uL (0.0-0.4); EOS % 1.2 % (1.0-4.0); HEMOGLOBIN 9.1 g/dl (12.0-16.0); LYMPH % 26.6 % (27.0-41.0); MEAN CELL VOLUME 73.9 fl (81.0-99.0); MEAN CORPUSCULAR HGB 19.8 pg (27.0-31.0); MEAN CORPUSCULAR HGB CONC 26.8 g/dl (33.0-37.0); MEAN PLATELET VOLUME 9.5 fl (9.6-12.3); MONO # 1.3 10*3/uL (0.1-1.0); MONO % 11.4 % (3.0-9.0); NEUT # 6.6 10*3/uL (2.3-7.9); NEUT % 59.3 % (47.0-73.0); NUCLEATED RED BLOOD CELL 0.2 % (0.0-0.0); PLATELET COUNT AUTOMATED 268 10*3/uL (130-400); RED CELL DISTRI WIDTH 26.9 % (0-14.5); WHITE BLOOD COUNT 11.1 10*3/uL (4.8-10.8)
--- NOTE | 2018-08-03 09:00 | NUR ---
Senior Water/Wastewater Engineer in to see patient. She is currently short term at [facility] and would like to return there upon discharge. exercise planner following.
--- NOTE | 2018-08-03 10:20 | NUR ---
DR. MEZA IN TO SEE THE PATIENT AND DISCUSS PLAN OF CARE.
--- NOTE | 2018-08-03 17:40 | NUR ---
LEVOPHED STOPPED AT THIS TIME. WILL CONTINUE TO MONITOR AND REASSESS. PATIENT REPORTS NO DIZZINESS OR LETHARGY AT THIS TIME.
--- NOTE | 2018-08-03 17:42 | NUR ---
DR. SANTIZO UPDATED ON PATIENT. ORDERS RECEIVED THAT PATIENT SHOULD START TAKING THEIR COREG TO SEE HOW THEY TOLERATE IT.
--- NOTE | 2018-08-03 18:54 | NUR ---
CHART CHECK COMPLETE.
--- NOTE | 2018-08-03 19:24 | NUR ---
DR RUBIO NOTIFIED THAT COUGH DROPS INEFFECTIVE PER PT AND THAT SHE DESIRES COUGH SYRUP.
--- NOTE | 2018-08-03 20:17 | NUR ---
PT SITTING ON SIDE OF BED...EATING PM SNACK. MEDICATED WITH ORGANIDIN PO FOR COUGH AND VISTARIL FOR RELAXATION AND ANXIETY /ONGOING LT ARM ITCHINESS.
--- NOTE | 2018-08-03 23:15 | NUR ---
NORCO AND ATIVAN WERE EFFECTIVE FOR HEADACHE AND ANXIETY PER PT. ASSESSMENT COMPLETE. VSS.
[2018-08-04] VITALS: BP 122/73
--- NOTE | 2018-08-04 00:06 | NUR ---
PT AWAKE, ANXIOUS, SCRATCHING AT HER LEGS AND ABDOMEN. STATES SHE HAS BEEN "ITCHY ALL OVER FOR 2 OR 3 DAYS. IT'S DRIVING ME CRAZY. CAN'T I HAVE A SHOT OR SOMETHING???" TOO EARLY FOR VISTARIL. DR RUBIO NOTIFED OF PT REQUEST.
--- NOTE | 2018-08-04 01:18 | NUR ---
0050 PO BENADRYL GIVEN ORDERED FOR ITCHY SKIN. SHE HAS NOW LAYED BACK AND TURNED HER LIGHT OFF.
--- NOTE | 2018-08-04 03:00 | NUR ---
PO BENADRYL EFFECTIVE FOR ITCHING ALL OVER...PT SLEEPING.
[2018-08-04 04:00] VITALS: BP 108/64
[2018-08-04 05:37] LABS: ALBUMIN 2.9 gm/dl (3.1-4.5); CREATININE 1.31 mg/dL (0.55-1.02); PHOSPHOROUS 2.6 mg/dL (2.5-4.9); POTASSIUM 2.9 mmol/L (3.5-5.1); TOTAL PROTEIN 5.9 gm/dL (6.4-8.2)
[2018-08-04 05:56] LABS: BASO # 0.1 10*3/uL (0.0-0.1); BASO % 0.5 % (0.0-1.0); EOS # 0.1 10*3/uL (0.0-0.4); EOS % 1.5 % (1.0-4.0); HEMATOCRIT 33.3 % (37.0-47.0); HEMOGLOBIN 8.9 g/dl (12.0-16.0); LYMPH # 2.3 10*3/uL (1.3-4.4); LYMPH % 25.2 % (27.0-41.0); MEAN CELL VOLUME 73.2 fl (81.0-99.0); MEAN CORPUSCULAR HGB 19.6 pg (27.0-31.0); MEAN CORPUSCULAR HGB CONC 26.7 g/dl (33.0-37.0); MEAN PLATELET VOLUME 9.2 fl (9.6-12.3); MONO % 11.3 % (3.0-9.0); NEUT # 5.5 10*3/uL (2.3-7.9); NEUT % 60.7 % (47.0-73.0); PLATELET COUNT AUTOMATED 309 10*3/uL (130-400); RED BLOOD COUNT 4.55 10*6/uL (4.10-5.10); RED CELL DISTRI WIDTH 27.5 % (0-14.5); WHITE BLOOD COUNT 9.1 10*3/uL (4.8-10.8)
--- NOTE | 2018-08-04 06:15 | NUR ---
ROBITUSSIN SYRUP AND VISTARIL AT 0445 FOR ONGOING COUGH AND SKIN ITCHINESS "A LITTLE BIT" EFFECTIVE PER PT.
--- NOTE | 2018-08-04 07:30 | NUR ---
PATIENT RESTING COMFORTABLY AT THIS TIME. PATIENT DENIES ANY PAIN, DISCOMFORT OR SOB ON ASSESSMENT. PATIENT IS A&OX3 AND AMBULATORY W/O ASSIST. IRRIGATOR SPRINKLING SYSTEM APPLIED, PATIENT PICC PATENT AND FLUSHES WELL. CALL LIGHT WITHIN REACH. SEE ASSESSMENT.
[2018-08-04 08:00] VITALS: BP 113/66
--- NOTE | 2018-08-04 09:45 | NUR ---
SPOKE WITH DR. NAGY REGARDING ELECTROLYTE IMBALANCE. ORDERS RECEIVED.
--- NOTE | 2018-08-04 10:00 | NUR ---
DR. MEZA IN TO SEE PATIENT AND DISCUSS PLAN OF CARE.
--- NOTE | 2018-08-04 11:00 | NUR ---
DR. SANTIZO IN TO SEE PATIENT AND DISCUSS PLAN OF CARE.
--- NOTE | 2018-08-04 11:00 | NUR ---
Coater Operator Insulation Board in to see patient. She is currently short term at [facility] and would like to return there upon discharge. exercise planner following.
[2018-08-04 12:00] VITALS: BP 113/66
--- NOTE | 2018-08-04 13:06 | NUR ---
Medicated for anxiety. see Mar.
--- NOTE | 2018-08-04 13:12 | NUR ---
Occupational Therapy evaluation completed on 4 with full eval to follow. Precautions include ICCU precautions,EF 10-15%, cardiac precautions, high anxiety, fall risk. Patient is moderate complexity level 74863 via chart review, testing, evaluation. Recommend OT per POC and SNF to enable max ability to function. Thank you for this referral. Bharti Cannon OTR/l
--- NOTE | 2018-08-04 13:30 | NUR ---
PHYSICAL THERAPY PAtient evaluated IN iccu, full evaluaion to follow. Continue with PT as per plan of care with fall, limited functional mobility, EF 10-15% AND and cardiac precautions. Recommend SNF. Patient is moderate complexity via chart review, tests and evaluation: [id number]. Thank you for this referral. Angelika Pina,PT
--- NOTE | 2018-08-04 14:01 | NUR ---
Faxed [facility] order.
[2018-08-04 15:46] VITALS: BP 98/62
--- NOTE | 2018-08-04 18:48 | NUR ---
Transferred via bed to 528. with belongings. Requests purse from lock box. Assistant Principal aware. Minimal report to Luis M MONROY.
[2018-08-04 20:00] VITALS: BP 117/78; BP 135/58
--- NOTE | 2018-08-04 20:49 | NUR ---
24 HR chart check completed.
--- NOTE | 2018-08-04 21:15 | NUR ---
RESTING IN BED. RESPIRATIONS EASY. LUNGS DIMINISHED. PULSE OX 94% RA. INFREQUENT DRY NON-PRODUCTIVE COUGH. +2 BLE EDEMA, DECLINES TEDS. REQUESTED AND RECEIVED NORCO PER PRN ORDER FOR COMPLAINTS OF BLE PAIN RATING A 6. ALSO REQUESTED AND RECEIVED ATIVAN PER PRN ORDER TO ASSIST WITH ANXIETY. CALL LIGHT WITHIN REACH. NO VOICED COMPLAINTS
--- NOTE | 2018-08-04 23:00 | NUR ---
STATES RELIEF FROM EARLIER MEDS. SITTING AT BEDSIDE EATING. CALL LIGHT WITHIN REACH. NO FURTHER VOICED COMPLAINTS
[2018-08-05] VITALS: BP 84/54; BP 96/62
--- NOTE | 2018-08-05 01:30 | NUR ---
AWAKE, DIGGING AND SCRATCHING LEGS. REQUESTED AND RECEIVED VISTARIL PER PRN ORDER. CALL LIGHT WITHIN REACH. WILL MONITOR FOR EFFECTIVENESS
--- NOTE | 2018-08-05 03:00 | NUR ---
MEDS EFFECTIVE. SLEEPING.
[2018-08-05 06:13] LABS: BASO % 0.3 % (0.0-1.0); EOS # 0.1 10*3/uL (0.0-0.4); EOS % 1.5 % (1.0-4.0); HEMATOCRIT 31.6 % (37.0-47.0); HEMOGLOBIN 8.4 g/dl (12.0-16.0); LYMPH # 2.2 10*3/uL (1.3-4.4); LYMPH % 25.1 % (27.0-41.0); MEAN CELL VOLUME 73.7 fl (81.0-99.0); MEAN CORPUSCULAR HGB 19.6 pg (27.0-31.0); MEAN CORPUSCULAR HGB CONC 26.6 g/dl (33.0-37.0); MEAN PLATELET VOLUME 8.9 fl (9.6-12.3); MONO % 10.9 % (3.0-9.0); NEUT # 5.4 10*3/uL (2.3-7.9); NEUT % 61.6 % (47.0-73.0); PLATELET COUNT AUTOMATED 271 10*3/uL (130-400); RED BLOOD COUNT 4.29 10*6/uL (4.10-5.10); RED CELL DISTRI WIDTH 27.5 % (0-14.5); WHITE BLOOD COUNT 8.7 10*3/uL (4.8-10.8)
[2018-08-05 06:40] LABS: ALBUMIN 2.9 gm/dl (3.1-4.5); POTASSIUM 3.2 mmol/L (3.5-5.1)
[2018-08-05 06:43] LABS: CREATININE 1.29 mg/dL (0.55-1.02); PHOSPHOROUS 3.1 mg/dL (2.5-4.9); TOTAL PROTEIN 5.9 gm/dL (6.4-8.2)
--- NOTE | 2018-08-05 07:47 | NUR ---
Patient updated clinicals and therapy evals faxed to [facility] to start precert, waiting on auth.
[2018-08-05 08:00] VITALS: BP 112/72
--- NOTE | 2018-08-05 09:00 | NUR ---
Senior Java Web Developer in to see patient. She is currently short term at [facility] and would like to return there upon discharge. corporate planner following.
--- NOTE | 2018-08-05 11:15 | NUR ---
PHYSICAL THERAPY Patient seen this am 1:1 for therapy visit and was sitting up EOB upon therapist arrival. Patient reports no c/o's pain this session, except for feeling a bit tired with generalized muscle weakness. Patient transfers sit to stand, AZURE ARCHITECT/Min A, demonstrating slow rise and tolerates 30-40 seconds static stand x several trials. Patient also ambulates AZURE ARCHITECT/Min, 50'x 2, demonstrating bouts of unsteady gait secondary to mild "scissoring" gait pattern. Patient needed v/c to to improve safer R foot placement during each stride and needed brief seated rest break between gait trials due to increased fatigue. Patient returned to EOB sit and remained as nursing arrived. Patient remained under Nurses Supervision and will continue per POC as tolerated. Total treatment time 16 minutes. Qamar Sheriff, MATERIAL MOVERS
--- NOTE | 2018-08-05 11:30 | NUR ---
OT NOTE Pt was seen this A.M. 1:1 for 18 minute OT session. Upon arrival pt was sitting upright on the EOB. Pt identified by name and and had no complaints at this time. Requested for pt to dunia B socks and pt required modA for inital start over her toes. Attempted to trial sock aid and pt declined stating that was a hassle last time you had me use it. Sit to stand completed from bed level with CGA, upon inital rise pt had LOB due to being unsteady requiring Annie to correct. Functional mobility completed around the room with Annie EVANS and several episodes of being unsteady due to narrow base of support. Educated pt on importance of wide base of support to decrease risk of falls. Pt was able to tolerate dynamic standing for aprox 4 minutes before sitting due to fatigue. When sitting pt was very impulsive increasing risk of falls. Educated pt to slow down and feel for bed on the back of her knees before sitting. Pt then completed functional mobility into the bathroom with Annie EVANS where she transferred on to standard commode with CGA and use of grab bar and off of standard commode with modA due to low surface. Pt transferred back into bed sit to supine with SBA. There she was left with call light in hand, tray table in place, and phone in reach. Continue with rec D/C plan to SNF. BEVERLEY Pulliam/Mick
[2018-08-05 12:00] VITALS: BP 106/65
--- NOTE | 2018-08-05 14:13 | NUR ---
PT REFUSING DRSG TO WOUND AT THIS TIME. OK FOR NEOSPORIN. REFUSED TO COVER. CALL LIGHT IN REACH.
--- NOTE | 2018-08-05 15:23 | NUR ---
OCCUPATIONAL THERAPY CO-SIGN I approve of the Occupational Therapy notes written above. THOR WILSON OTR/Mick
[2018-08-05 16:00] VITALS: BP 121/97
[2018-08-05 21:57] VITALS: BP 84/52
--- NOTE | 2018-08-05 21:57 | NUR ---
PATIENT BLOOD PRESSURE 84/32. ASYMPTOMATIC. TERESA FITCH. SEE NEW ORDERS.
[2018-08-06] VITALS (7 sets, daily range): BP systolic 90–134; BP diastolic 60–93
--- NOTE | 2018-08-06 03:08 | NUR ---
PATIENT COMPLAINING OF MIGRAINE. MEDICATED WITH FIORICET. WILL CHECK EFFECTIVENESS.
--- NOTE | 2018-08-06 05:49 | NUR ---
NICOLE REQUESTING ATIVAN. BLOOD PRESSURE 90/60, MANUAL. DR. FITCH OKAYED TO GIVE ATIVAN AT THIS TIME. WILL CHECK EFFECTIVENESS.
[2018-08-06 06:00] LABS: BASO % 0.4 % (0.0-1.0); EOS # 0.1 10*3/uL (0.0-0.4); EOS % 1.2 % (1.0-4.0); HEMATOCRIT 30.4 % (37.0-47.0); HEMOGLOBIN 8.5 g/dl (12.0-16.0); LYMPH # 2.5 10*3/uL (1.3-4.4); LYMPH % 28.1 % (27.0-41.0); MEAN CELL VOLUME 72.4 fl (81.0-99.0); MEAN CORPUSCULAR HGB 20.2 pg (27.0-31.0); MEAN PLATELET VOLUME 8.8 fl (9.6-12.3); MONO # 1.1 10*3/uL (0.1-1.0); NEUT # 5.1 10*3/uL (2.3-7.9); NEUT % 57.7 % (47.0-73.0); PLATELET COUNT AUTOMATED 300 10*3/uL (130-400); RED CELL DISTRI WIDTH 27.3 % (0-14.5); WHITE BLOOD COUNT 8.9 10*3/uL (4.8-10.8)
[2018-08-06 06:37] LABS: ALBUMIN 2.9 gm/dl (3.1-4.5); POTASSIUM 3.6 mmol/L (3.5-5.1)
[2018-08-06 06:42] LABS: CREATININE 1.39 mg/dL (0.55-1.02); PHOSPHOROUS 2.7 mg/dL (2.5-4.9)
--- NOTE | 2018-08-06 08:50 | NUR ---
PT COMPLAINING OF HEADACHE AND LEG PAIN, RATES PAIN 7/10. MEDICATED WITH PRN NORCO. WILL MONITOR FOR EFFECTIVENESS.
--- NOTE | 2018-08-06 10:00 | NUR ---
PT RESTING COMFORTABLY, EARLIER NORCO EFFECTIVE.
[2018-08-06] MEDS ORDERED: Humalog SQ (12:21)
[2018-08-06] MEDS ORDERED: LISINOPRIL2.5 MG PO (12:21)
[2018-08-06] MEDS ORDERED: TORSEMIDE20 MG PO (12:21)
[2018-08-06] MEDS ORDERED: MAGNESIUM250 M1 PO (12:21)
[2018-08-06] MEDS ORDERED: ATIVAN2 M1 PO (12:21)
[2018-08-06] MEDS ORDERED: KLOR-CON M2020 ME1 PO (12:21)
[2018-08-06] MEDS ORDERED: Flonase 0.05% 120 Me NAS (12:21)
[2018-08-06] MEDS ORDERED: OXYBUTYNIN CHLOR5 MG PO (12:21)
--- NOTE | 2018-08-06 12:38 | NUR ---
CONTACTED [facility] REGARDING PT'S DISCHARGE AND WHETHER PRECERT HAS BEEN OBTAINED. STATES PT MAY NOT RETURN TODAY WE ARE STILL AWAITING PRECERT. DR JONES INFORMED.
--- NOTE | 2018-08-06 13:26 | NUR ---
SPOKE WITH DR JONES REGARDING PT'S OPTIMIZATION ANALYST. STATES PT MAY STAY OFF OPTIMIZATION ANALYST.
--- NOTE | 2018-08-06 15:10 | NUR ---
MEDICATED WITH ATIVAN AND MILK OF MAGNESIA PER PRN ORDER. WILL MONITOR FOR EFFECTIVENESS.
--- NOTE | 2018-08-06 20:00 | NUR ---
AAOX3 SITTING UP IN CHAIR IN ROOM. PT. ON PHONE & STATES THAT SHE WAS ALREADY CHECKED OUT BY PA. I LET HER KNOW THAT I WAS HER NURSE AND NEEDED TO DO AN ASSESSMENT. PT. STATED THAT SHE WAS TIRED OF BEING BOTHERED CONSTANTLY; ALTHOUGH PATIENT DID LET ME DO AN ASSESSMENT. TOOK PT. WARM BLANKET. CALL LIGHT WITHIN REACH. NO DISTRESS NOTED.
--- NOTE | 2018-08-06 22:32 | NUR ---
DARIN LOLYD, WALKED IN TO PTs ROOM TO FIND HER ON THE FLOOR, ABDOMEN DOWN AND HOLDING HER HEAD UP WITH WITH ELBOWS. PT STATED SHE WAS TRYING TO REACH FOR HER OINTMENT WHICH FELL ONTO THE FLOOR BY HER FEET. DENIES HITTING HER HEAD AND REQUESTING "NO MORE XRAYS". PT STATES SHE IS FINE AND IS NO PAIN. VSS. ASSISTED BACK TO BED BY 2 RNS. ASSIGNED NURSE IS AT BEDSIDE. NOTIFIED.
--- NOTE | 2018-08-06 22:37 | NUR ---
FITNESS SALES CONSULTANT ADALBERTO MADE AWARE.
--- NOTE | 2018-08-06 22:53 | NUR ---
MEDICATED WITH NORCO FOR C/O LEG PAIN.
--- NOTE | 2018-08-06 23:00 | NUR ---
MEDICATED WITH ATIVAN FOR C/O ANXIETY.
[2018-08-07] VITALS: BP 90/73
--- NOTE | 2018-08-07 00:10 | NUR ---
PA INFORMED ME THAT PT. REFUSE TO LEAVE THE BED ALARM ON & TURNED IT OFF HERSELF.
--- NOTE | 2018-08-07 00:11 | NUR ---
UPON ENTERING ROOM PATIENT HAS BED ALARM OFF. PT. ADVISED THAT SHE NEEDS TO HAVE THE BED ALARM ON BUT IS ADAMANTLY REFUSING TO LEAVE IT ON. ANOTHER RN WITNESSED THIS AT BEDSIDE. PT. ENCOURAGED TO USE CALL LIGHT; VERBALIZED UNDERSTANDING. CALL LIGHT WITHIN REACH.
--- NOTE | 2018-08-07 01:39 | NUR ---
MEDICATED WITH VISTARIL FOR C/O ANXIETY & BEING ITCHY.
--- NOTE | 2018-08-07 04:00 | NUR ---
RESTING IN BED WITH EYES CLOSED; MEDICATION GIVEN EARLIER APPARENTLY EFFECTIVE.
--- NOTE | 2018-08-07 06:00 | NUR ---
MEDICATED WITH NORCO FOR C/O GENERALIZED DISCOMFORT. CALL LIGHT WITHIN REACH; BED IN LOW LOCKED POSITION.
[2018-08-07 08:00] VITALS: BP 116/66
[2018-08-07 12:00] VITALS: BP 108/56
--- NOTE | 2018-08-07 14:36 | NUR ---
PT COMPLAINING OF ITCHING. MEDICATED WITH VISTARIL PER PRN ORDER. WILL MONITOR FOR EFFECTIVENESS.
--- NOTE | 2018-08-07 15:40 | NUR ---
PT STILL COMPLAINING OF ITCHING. PRN ATIVAN OFFERED AND DECLINED. STATES SHE WILL ASK FOR IT LATER THIS EVENING.
[2018-08-07 16:00] VITALS: BP 138/51; BP 99/72
[2018-08-07 20:00] VITALS: BP 95/70
--- NOTE | 2018-08-07 21:00 | NUR ---
TOLERATED HS MEDS WELL. PT REQUESTING TO HAVE PICC LINE REMOVED. EXPLAINED IMPORTANCE OF LEAVING IT IN UNTIL SHE IS DISCHARGED. PT NOT HAPPY BUT AGREEABLE. CALL LIGHT IN REACH. REFUSING TO LET NURSING PLACE BED ALARM ON. ENCOURGED CALL LIGHT USE FOR ASSISTANCE.
--- NOTE | 2018-08-07 23:39 | NUR ---
24HR CHART CHECK COMPLETED.
[2018-08-08] VITALS: BP 92/60
--- NOTE | 2018-08-08 00:32 | NUR ---
PATIENT C/O ITCHING. VISTERIL ADMINISTERED PRESCRIBED. WILL MONITOR FOR EFFECTIVENESS.
--- NOTE | 2018-08-08 00:35 | NUR ---
PATIENT REQUESTING PAIN MEDICATION FOR GENERALIZE DISCOMFORT. NORCO ADMINISTERED PRESCRIBED. WILL MONITOR FOR EFFECTIVENESS.
--- NOTE | 2018-08-08 01:59 | NUR ---
PT MOANING AND ITCHING SKIN. STATES VISTARIL DID NOT HELP. CALLED . NEW ORDER FOR MARY RECEIVED. SEE MAR.
--- NOTE | 2018-08-08 05:29 | NUR ---
BSG 146. NO COVERAGE NEEDED PER SLIDING SCALE.
[2018-08-08 06:37] LABS: CREATININE 1.47 mg/dL (0.55-1.02); POTASSIUM 4.4 mmol/L (3.5-5.1)
[2018-08-08 08:00] VITALS: BP 102/65
--- NOTE | 2018-08-08 09:00 | NUR ---
R Developer in to see patient. She is currently short term at [facility] and would like to return there upon discharge. senior materials planner following.
--- NOTE | 2018-08-08 09:45 | NUR ---
PHYSICAL THERAPY Patient seen this am 1:1 for therapy visit and was sitting up EOB this am with nurse present upon therapist arrival. Patient reports several bouts of dizziness when sitting up this morning, which seems to relieve itself < 20 seconds. Patient reports no c/o's pain while transfering sit to stand with MIN A from low low bed surface. Patient needed a few seconds to "collect" herself prior to ambulating FISH INSPECTOR/CGA, 40'x 2, demonstrating very slow, unsteady gait pattern, R LE scissoring gait. Patient also unsteady during 180 degree turns, with increased fatigue, requiring seated rest break between gait trials. Patient completed eyes open / closed SBA, demonstrating "wobbly" standing balance prior to returning to EOB sit. Patient remained EOB with call light, tray table and telephone. Patient refuses bed alarm and when educated on safety concerns related to risk of falling, became agitated. Nurse notifed that bed alarm was not activated and will continue per POC as tolerated. Total treatment time 17 mintues. Qamar Sheriff, GLASS DRILLER
--- NOTE | 2018-08-08 09:45 | NUR ---
OT NOTE Pt was seen this A.M. 1:1 for 15 minute OT session. Upon arrival pt was supine in bed. Pt identified by name and and had complaints of itchy skin. Pt transferred supine to sit EOB with SBA. While sitting EOB pt donned socks with modA due to limited ROM and declining adaptive equipment. Attempted to complete leg over knee technique and pt was able to bring leg aprox half way up. Pt then completed sit to stand transfer from bed level with Annie. Stand pivot completed bed to bedside commode with Annie MAJOR ACCOUNT MANAGER due to being unsteady increasing risk of falls. Pt transferred on to bedside commode with CGA and off with Annie. Pt then returned to the EOB. Throughout transfer pt was very impulsive, educated pt to slow down due to enhance safety and decrease risk of falls. Challenged pt's dynamic standing tolerance while completing functional mobility around the room with Annie MAJOR ACCOUNT MANAGER for increased I in self care tasks and functional transfers. Pt was able to tolerate aprox 4 minutes at a time before requesting to sit due to fatigue. Throughout mobility pt was very unsteady having LOB due to narrow base of support requiring Annie to correct. Educated pt to widen base of support and pt had fair carry over. Pt returned to the EOB where she was left sitting upright with call light in hand, tray table in place, and pt refusing bed alarm (pt's nurse Rhiannon notified). Continue with rec D/C plan to SNF. BEVERLEY Pulliam/Mick
--- NOTE | 2018-08-08 09:46 | NUR ---
PT/OT IN TO WORK WITH PATIENT AT THIS TIME. PATIENT REFUSING BED ALARM
--- NOTE | 2018-08-08 10:03 | NUR ---
PATIENT MEDICATED WITH MORNING MEDICATIONS WELL NORCO AND VISTARIL AT THIS TIME PER REQUEST FROM PATIENT. PATIENT COMPLAINING OF BEING ANXIOUS, AND ITCHING AT THIS TIME. PATIENT REFUSING TO PUT CALAZIME CREAM ON AT THIS TIME. NEOSPORIN APPLIED TO LEGS AND HANDS AT THIS TIME PER REQUEST OF PATIENT. PATIENT REFUSING BED ALARM AT THIS TIME.
--- NOTE | 2018-08-08 10:14 | NUR ---
PATIENT REFUSING DRESSING TO RAC. PATIENT STATES WOUND IS HEALED AND IT DOESNT NEED A DRESSING.
[2018-08-08 12:00] VITALS: BP 102/65
--- NOTE | 2018-08-08 12:03 | NUR ---
Faxed clinical updates and therapy notes to [facility] for precert to return. Waiting on auth
--- NOTE | 2018-08-08 12:35 | NUR ---
PATIENT CONTINUE TO COMPLAIN ABOUT BEING ITCHY. LOTION APPLIED TO PATIENTS FEET, LEGS, ABDOMEN, AND BACK AT THIS TIME. PATIENT STATES THAT SEEMS TO HELP FOR A LITTLE BIT.
--- NOTE | 2018-08-08 13:36 | NUR ---
Patient has received auth for [facility] and can go if medically stable for discharge.
--- NOTE | 2018-08-08 15:30 | NUR ---
Patient is discharged to [facility], transportation scheduled for 4:30 with ambulette from [facility]. Notified bath steward/stewardess.
[2018-08-08 16:00] VITALS: BP 110/62
--- NOTE | 2018-08-08 16:35 | NUR ---
PATIENT DISCHARGED. [facility] IS GOING TO PICK PATIENT UP. PICC LINE REMOVED FROM PATIENT'S LEFT ARM. PATIENT TOLERATED WELL WITH MINIMAL BLEEDING. NURSE TO NURSE REPORT CALLED TO RECIEVING NURSE AT [facility]. NO QUESTIONS OR CONCERNS VOICED FROM RN.
--- NOTE | 2018-08-08 16:49 | NUR ---
PATIENT REFUSES DISCHARGE WOUND PICTURES. STATES THE WOUND IS HEALED AND THERE IS NOTHING TO TAKE A PICTURE OF.
--- NOTE | 2018-08-08 16:58 | NUR ---
Discharge instructions reviewed with patient/family. Patient receptive and verbalizes understanding. Follow-up care arranged. Written instructions given to patient/family. PSYCHIATRIC HERE TO BRAKE REPAIRER HYDRAULIC PATIENT AT THIS TIME. ALL PATIENTS BELONGINGS WITH PATIENT AT THIS TIME. NO NEEDS OR CONCERNS VOICED. RAMILA JIMENEZ
--- NOTE | 2018-08-09 07:31 | NUR ---
PHYSICAL THERAPY CO-SIGN I approve of the Phyical Therapy notes written above. YAMILETH WEBBER PT\
--- NOTE | 2018-08-09 07:42 | NUR ---
OCCUPATIONAL THERAPY CO-SIGN I approve of the Occupational Therapy notes written above. THOR WILSON OTR/Mick
== END 2018-08-08 16:58 | disposition other institution (70) | DRG 314 ==
LOC: ED 11:51 → EDHOLD 13:49 → ICCU 13:49 → 5E 08-04 18:50
PROVIDERS: Emergency Medicine; Internal Medicine; Student in an Organized Health Care Education/Training Program; ADMIT Internal Medicine
PROC: 05HN33Z Insertion of Infusion Device into Left Internal Jugular Vein, Percutaneous Approach (ICD-10-PCS; principal; 2018-08-02)
DX: I95.9 Hypotension, unspecified (principal); N17.0 Acute kidney failure with tubular necrosis; R57.0 Cardiogenic shock; I50.23 Acute on chronic systolic (congestive) heart failure; E44.0 Moderate protein-calorie malnutrition; I13.0 Hypertensive heart and chronic kidney disease with heart failure and stage 1 through stage 4 chronic kidney disease, or unspecified chronic kidney disease; F33.9 Major depressive disorder, recurrent, unspecified; Z68.41 Body mass index [BMI] 40.0-44.9, adult; E87.1 Hypo-osmolality and hyponatremia; E87.2 Acidosis; I42.0 Dilated cardiomyopathy; E87.5 Hyperkalemia; D72.821 Monocytosis (symptomatic); E55.9 Vitamin D deficiency, unspecified; D50.9 Iron deficiency anemia, unspecified; R26.2 Difficulty in walking, not elsewhere classified; N18.3 Chronic kidney disease, stage 3 (moderate); E11.22 Type 2 diabetes mellitus with diabetic chronic kidney disease; E87.8 Other disorders of electrolyte and fluid balance, not elsewhere classified; E80.6 Other disorders of bilirubin metabolism; Z51.5 Encounter for palliative care; E86.1 Hypovolemia; F41.9 Anxiety disorder, unspecified; K57.90 Diverticulosis of intestine, part unspecified, without perforation or abscess without bleeding; E78.5 Hyperlipidemia, unspecified; E66.01 Morbid (severe) obesity due to excess calories; Z96.643 Presence of artificial hip joint, bilateral; Z90.710 Acquired absence of both cervix and uterus; Z82.49 Family history of ischemic heart disease and other diseases of the circulatory system; Z80.42 Family history of malignant neoplasm of prostate; Z80.41 Family history of malignant neoplasm of ovary; Z79.899 Other long term (current) drug therapy; Z95.810 Presence of automatic (implantable) cardiac defibrillator

== ENCOUNTER 2018-08-15 11:20 | Emergency (ER) | payer OTHER ==
[2018-08-15] VITALS (13 sets, daily range): BP systolic 41–153; BP diastolic 12–127
[~2018-08-15] VITALS: Wt 113.4 kg
--- NOTE | ~2018-08-15 | O ---
[place], [place] OPERATIVE NOTE NAME: FAISAL PICKENS UNIT #: [id number] ROOM: DOCTOR: BELTRAN WU CRNA BIRTHDATE: [birth year] DOS: I was called for an emergency intubation on 08/15/2018 at 3:00 at the request of Dr. Cormier. Me and Dr. Hidalgo went down to the Emergency Room and the patient was in respiratory failure, labored breathing. Sats were 87. We, after getting report, gave her 120 mg of etomidate intubated her with a 7-1/2 oral ET tube with a #4 MAC, secured it at 22 cm at the lip line. She had positive bilateral breath sounds, positive end-tidal CO2. Tube was secured. Care was resumed by the Emergency Room staff. BELTRAN WU CRNA CM:OPRECORD:OPERATIVE NOTE [id number] BELTRAN WU CRNA 08/18/18 1508 interface
--- NOTE | ~2018-08-15 | EKG ---
[place], [place] ELECTROCARDIOGRAM REPORT NAME: FAISAL PICKENS UNIT #: [id number] ROOM: DOCTOR: EPIPHANY DRAFT REPORT BIRTHDATE: [birth year] [facility] Test Date: 2018-08-15 Test Time: 11:31:23 Pat Name: FAISAL PICKENS Department: Room: [place] [address] Gender: F Cooker Meal: 0012 : 1955 Requested By: KARLO BLANTON Order Number: [id number] Reading MD: El Ge MD Measurements Intervals [place] Rate: 0 P: 0 NC: QRS: 0 QRSD: T: QT: QTc: 0 Interpretive Statements Uncertain rhythm: review No further analysis attempted - not enough leads could be measured Compared to ECG 08/04/2018 14:52:51 Sinus tachycardia no longer present Ventricular premature complex(es) no longer present Myocardial infarct finding no longer present Myocardial infarct finding no longer present T-wave abnormality no longer present Electronically Signed On 08-16-2018 4:00:27 PST by El Ge MD CM:EKGRPT:ELECTROCARDIOGRAM REPORT [id number] 0400 KARLO DANIEL DRAFT REPORT KARLO BLANTON MD
--- NOTE | ~2018-08-15 | EKG ---
[place], [place] ELECTROCARDIOGRAM REPORT NAME: FAISAL PICKENS UNIT #: [id number] ROOM: DOCTOR: EPIPHANY DRAFT REPORT BIRTHDATE: [birth year] [facility] Test Date: 2018-08-15 Test Time: 13:07:47 Pat Name: FAISAL PICKENS Department: Room: [facility] Gender: F Pie Chef: Marianna Aleman : 1955 Requested By: KARLO BLANTON Order Number: [id number] Reading MD: El Ge MD Measurements Intervals [place] Rate: 0 P: 0 NH: QRS: 0 QRSD: T: QT: QTc: 0 Interpretive Statements Uncertain rhythm: review No further analysis attempted - not enough leads could be measured Compared to ECG 08/04/2018 14:52:51 Sinus tachycardia no longer present Ventricular premature complex(es) no longer present Myocardial infarct finding no longer present Myocardial infarct finding no longer present T-wave abnormality no longer present Electronically Signed On 08-16-2018 4:01:00 PST by El Ge MD CM:EKGRPT:ELECTROCARDIOGRAM REPORT [id number] KARLO DANIEL DRAFT REPORT KARLO BLANTON MD
[~2018-08-15 11:20] MED LIST changes: +DULCOLAX STOOL100 M1 PO; +DULCOLAX10 M1 R; +Flonase 0.05% 120 Me NAS; +GUAIASORB DM L118 ML PO; +Humalog SQ; +LISINOPRIL2.5 MG PO; +MAGNESIUM250 M1 PO; +MILK OF MA400 MG/51 PO; +MIRALAX POWDER17 G1 PO; +MUCINEX ER600 MG PO; +OXYBUTYNIN CHLOR5 MG PO; +POTASSIUM CHLO20 ME3 PO; +PRESERVISION A1 EAC1 PO; +TORSEMIDE20 MG PO
[2018-08-15 11:53] LABS: HEMATOCRIT 34.9 % (37.0-47.0); HEMOGLOBIN 9.7 g/dl (12.0-16.0); MEAN CELL VOLUME 71.4 fl (81.0-99.0); MEAN CORPUSCULAR HGB 19.8 pg (27.0-31.0); MEAN CORPUSCULAR HGB CONC 27.8 g/dl (33.0-37.0); MEAN PLATELET VOLUME 8.9 fl (9.6-12.3); NUCLEATED RED BLOOD CELL 0.6 10*3/uL (0.0-0.0); NUCLEATED RED BLOOD CELL 6.1 % (0.0-0.0); PLATELET COUNT AUTOMATED 229 10*3/uL (130-400); RED BLOOD COUNT 4.89 10*6/uL (4.10-5.10); WHITE BLOOD COUNT 9.5 10*3/uL (4.8-10.8)
[2018-08-15 12:02] LABS: ACT PARTIAL THROMBO TIME 24.1 SECONDS (20.8-31.5); INTERNATIONAL NORM RATIO 1.8 (2.0-3.5)
[2018-08-15 12:12] LABS: TOTAL CELLS COUNTED 100 #CELLS
[2018-08-15 12:15] LABS: BURR CELLS MODERATE; PLATELET SUFFICIENCY NORMAL (NORMAL)
[2018-08-15 12:22] LABS: ALBUMIN 2.9 gm/dl (3.1-4.5); CREATININE 4.15 mg/dL (0.55-1.02); TOTAL PROTEIN 6.2 gm/dL (6.4-8.2); TROPONIN I 0.016 ng/ml (<0.045)
[2018-08-15 12:29] LABS: POTASSIUM 8.1 mmol/L (3.5-5.1)
== END 2018-08-15 16:25 ==
LOC: ED 11:20 → EDHOLD 12:45 → ED 12:45
PROVIDERS: Emergency Medicine
DX: N17.9 Acute kidney failure, unspecified (principal); R41.82 Altered mental status, unspecified; E87.5 Hyperkalemia; I95.9 Hypotension, unspecified; E11.22 Type 2 diabetes mellitus with diabetic chronic kidney disease; I13.0 Hypertensive heart and chronic kidney disease with heart failure and stage 1 through stage 4 chronic kidney disease, or unspecified chronic kidney disease; N18.3 Chronic kidney disease, stage 3 (moderate); I50.9 Heart failure, unspecified; E78.5 Hyperlipidemia, unspecified; I42.8 Other cardiomyopathies; E66.01 Morbid (severe) obesity due to excess calories; Z68.41 Body mass index [BMI] 40.0-44.9, adult; Z79.899 Other long term (current) drug therapy; Z79.84 Long term (current) use of oral hypoglycemic drugs; Z90.710 Acquired absence of both cervix and uterus